=== PATIENT | female | born 1970 | race Caucasian/White ===

== ENCOUNTER → 2017-11-15 08:27 | Outpatient (CLI) | payer OTHER, SELFPAY ==
--- NOTE | 2017-11-15 08:33 | HPBI_ITS ---
MAMMOGRAPHY - BILATERAL SCREENING REASON FOR EXAM: Female, 47 years old. Routine annual screening examination. PERTINENT HISTORY: Grandmother with breast cancer. TECHNIQUE: Digital bilateral breast matthew (3D mammographic acquisition) in the CC and MLO projections. 2-D mediolateral oblique (MLO) and craniocaudad (CC) views of both breasts were obtained. CAD: Full Field Digital Mammography with Computer Added Detection was performed. COMPARISON: Comparison is made with prior study dated July 20, 2016 and September 03, 2014. FINDINGS: Breast Composition: The breasts are heterogeneously dense, which may obscure small masses. There are no dominant masses or suspicious calcifications. Stable benign-appearing bilateral axillary lymph nodes. No other significant abnormalities are identified. There has been no significant change since the prior study. HPBI/SCREENING MAMM (CAD), BILAT IMPRESSION: Stable bilateral screening mammogram. Yearly follow-up mammogram recommended. (A) ASSESSMENT CATEGORY: BIRADS Category 2: Benign. A letter regarding these results will be sent to the patient by the facility within 30 days. Approximately 10% of breast cancers are not detected by mammography. A normal mammogram should not delay biopsy of a clinically suspicious abnormality. [id number] Electronically Signed: Seth Steel MD at 10:35 EST Tel [phone], Service support ,
== END ==
PROVIDERS: Family Provider Family Medicine; PCP Family Medicine; Visit Provider Obstetrics & Gynecology
DX: Z12.31 Encounter for screening mammogram for malignant neoplasm of breast (principal); Z80.3 Family history of malignant neoplasm of breast
CPT/HCPCS: 77063; 77067

== ENCOUNTER → 2018-06-06 11:22 | Outpatient (CLI) | payer OTHER, SELFPAY ==
--- NOTE | 2018-06-06 11:31 | US_ITS ---
STUDY: ULTRASOUND OF THE FEMALE PELVIS - COMPLETE REASON FOR EXAM: Female, 47 years old. Abnormal bleeding. Prior endometrial ablation LMP: Unknown. TECHNIQUE: Transabdominal and Transvaginal TECHNICAL QUALITY: Adequate. COMPARISON: None. FINDINGS: The uterus is anteverted and is in a midline position. The uterus measures 9.3 x 4.4 x 3.9 cm. There is a Nabothian cyst of the cervix. The endometrium measures 2.6 mm in thickness, and is heterogeneous (striated). There is no demonstrated endometrial mass. There is no demonstrated myometrial mass. I.U.D. - The patient does not have an I.U.D. The right ovary is non-visualized. There is prominent cystic change in the lower uterine segment. The left ovary is visualized. The left ovary measures 2.3 x 1.7 x 1.2 cm. There is no left ovarian cyst or ovarian mass. There is no visualized left adnexal mass or complex lesion. There is normal arterial and normal venous vascularity. There is no fluid in the cul-de-sac. The pre void volume of the bladder was 410 ml. Polycystic ovary disease: No. US/Pelvic (Non ) IMPRESSION: Nonvisualized right ovary. Endometrium measuring 2.6 mm. Prominent cystic appearance of the lower uterine segment. Electronically Signed: Montrell Jang DO at 10:50 EDT Tel , Service support ,
--- NOTE | 2018-06-06 11:36 | US_ITS ---
STUDY: ULTRASOUND OF THE FEMALE PELVIS - COMPLETE REASON FOR EXAM: Female, 47 years old. Abnormal bleeding. Prior endometrial ablation LMP: Unknown. TECHNIQUE: Transabdominal and Transvaginal TECHNICAL QUALITY: Adequate. COMPARISON: None. FINDINGS: The uterus is anteverted and is in a midline position. The uterus measures 9.3 x 4.4 x 3.9 cm. There is a Nabothian cyst of the cervix. The endometrium measures 2.6 mm in thickness, and is heterogeneous (striated). There is no demonstrated endometrial mass. There is no demonstrated myometrial mass. I.U.D. - The patient does not have an I.U.D. The right ovary is non-visualized. There is prominent cystic change in the lower uterine segment. The left ovary is visualized. The left ovary measures 2.3 x 1.7 x 1.2 cm. There is no left ovarian cyst or ovarian mass. There is no visualized left adnexal mass or complex lesion. There is normal arterial and normal venous vascularity. There is no fluid in the cul-de-sac. The pre void volume of the bladder was 410 ml. Polycystic ovary disease: No. US/Transvaginal Non- IMPRESSION: Nonvisualized right ovary. Endometrium measuring 2.6 mm. Prominent cystic appearance of the lower uterine segment. Electronically Signed: Montrell Jang DO at 10:50 EDT Tel , Service support ,
== END ==
PROVIDERS: Family Provider Family Medicine; PCP Family Medicine
DX: E34.9 Endocrine disorder, unspecified (principal); E55.9 Vitamin D deficiency, unspecified; R53.83 Other fatigue; R79.9 Abnormal finding of blood chemistry, unspecified
CPT/HCPCS: 76830; 76856; 93976

== ENCOUNTER 2018-06-10 06:40 | Emergency (ER) | payer OTHER, SELFPAY ==
[2018-06-10 06:40] VITALS: BP 182/90; PULSE 83; RESP 18; TEMP 36.8; O2SAT 99; BMI 35.2
--- NOTE | 2018-06-10 06:44 | NURSING ---
NO OLD EKGS
--- NOTE | 2018-06-10 06:49 | EKG12_ITS ---
Test Reason : CHEST PAIN Blood Pressure : / mmHG Vent. Rate : 086 BPM Atrial Rate : 086 BPM P-R Int : 154 ms QRS Dur : 090 ms QT Int : 376 ms P-R-T Axes : 039 086 046 degrees QTc Int : 449 ms Normal sinus rhythm Normal ECG Confirmed by CHULA VALENTIN, RICK ([id number]), editorial director NAZARIO CANALES ([id number]) on 06/14/2018 8:48:59 AM Referred By: EMILY NIXON Confirmed By:RICK QUIROS MD
--- NOTE | 2018-06-10 06:52 | RAD_ITS ---
STUDY: X-RAY CHEST REASON FOR EXAM: Female, 47 years old. Chest pain TECHNIQUE: Single frontal view of the chest. COMPARISON: None. FINDINGS: The lungs are clear and expanded. There is no demonstrated pleural abnormality. Normal size heart. Normal mediastinum and isabella. Normal visualized pulmonary arteries. Normal visualized aortic arch and descending thoracic aorta. Normal visualized thoracic spine. Normal visualized ribs, clavicles, and shoulders. There is no demonstrated abnormality of the visualized soft tissue structures of the upper abdomen. RAD/Chest 1 View (Portable) IMPRESSION: Normal x-ray examination of the chest. Electronically Signed: Rodrick Wilson, at 7:04 EDT Tel , Service support ,
[2018-06-10 06:59] LABS: Absolute Lymphocyte Count 2.43 X10^3/ul (0.83-4.51); Basophil# 0.04 X10^3/uL; Basophil% 0.7 % (0-1); Eosinophil# 0.18 X10^3/uL; Hematocrit 42.1 % (37-47); Hemoglobin 13.5 g/dl (12.0-15.0); Lymphocyte # 2.43 X10^3/ul (4.0); Mean Corp Hgb Conc 32.1 g/gl (32-36); Mean Corpuscular Hgb 29.7 pg (27.0-32.0); Mean Corpuscular Volume 92.5 fL (81-99); Mean Platelet Vol. 10.1 fl (6.2-12.0); Monocyte# 0.38 X10^3/uL; Monocyte% 6.3 % (0-10); Neutrophil # 3.04 X10^3/uL (2.7-7.7); Neutrophil % 49.8 % (47-70); POSITIVE COUNT NO; POSITIVE DIFFERENTIAL NO; POSITIVE MORPHOLOGY NO; Platelet Count 270 K/mm3 (150-450); RBC Distribution Width CV 13.1 % (11.6-14.6); RBC Distribution Width SD 44.4 fl (35.1-43.9); Red Blood Count 4.55 M/mm3 (4.2-5.4); White Blood Count 6.1 K/mm3 (4.4-11.0)
[2018-06-10 07:14] LABS: Anion Gap 8 (5-15); BUN 16 mg/dL (7-18); BUN/Creat Ratio 22.6 RATIO (10-20); Calcium,Total 8.9 mg/dL (8.5-10.1); Chloride 105 mmol/L (98-107); Creatinine, Serum 0.71 mg/dL (0.55-1.02); EST Glomerular Filtration Rate 94 mL/min (>60); Est Glom Filt Rate - Afr Amer 114 mL/min (>60); Estimated Creatinine Clearance 89.09 ml/min; Glucose 104 mg/dL (74-106); Potassium 4.3 mmol/L (3.5-5.1); Sodium Level 138 mmol/L (136-145)
--- NOTE | 2018-06-10 07:19 | EKG12_ITS ---
Test Reason : CHEST PAIN Blood Pressure : / mmHG Vent. Rate : 075 BPM Atrial Rate : 075 BPM P-R Int : 160 ms QRS Dur : 092 ms QT Int : 388 ms P-R-T Axes : 026 085 050 degrees QTc Int : 433 ms Normal sinus rhythm Normal ECG Confirmed by CHLUA VALENTIN, RICK ([id number]), commercial production editor NAZARIO CANALES ([id number]) on 06/14/2018 8:49:18 AM Referred By: EMILY NIXON Confirmed By:RICK QUIROS MD
[2018-06-10] MEDS: Aspirin 81 MG TAB.CHEW 324 MG PO (07:21)
--- NOTE | 2018-06-10 08:36 | ED.VISSUMM ---
- ER Visit Summary Date of Service: 06/10/18 Chief Complaint: Chest pain History of Present Illness: The patient is a 47 F who presents with chest pressure. She states that yesterday afternoon or evening about 5 or 6 PM she had an episode that lasted approximately 30-45 minutes. She states that she felt flushed and had some chest pressure and palpitations. She was generally not feeling well. 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 The nurse practitioner checked her blood pressure was significantly elevated. Her symptoms then improved. He returned at about 4 AM today. She complains of mild to moderate chest pressure. She denies any shortness of breath and nausea. She states she became a little bit diaphoretic. She also notes some recent congestion but does have a history of seasonal allergies and also complain of headache. She is currently going through menopause she notes. She is treated for hypothyroidism but really has no other medical history. She denies diabetes hypertension hyperlipidemia. She is not a smoker. There is no family history of coronary artery disease at a young age. She notes that she has had prior similar intermittent episodes of the last couple of weeks. These episodes are not related to exertion. Physical Examination: Afebrile initial blood pressure 182/90 vitals otherwise normal Moist mucous membranes Heart regular rate and rhythm no murmur Lungs are clear Abdomen soft and nontender 2+ symmetric radial pulses extremities are nontender without edema Alert Test Results: EKG shows normal sinus rhythm at a rate of 86 with no acute ischemic changes. Repeat EKG remains unchanged. Chest x-ray shows no acute process. CBC BMP normal and initial troponin is negative. Repeat troponin remains negative. Emergency Department Course and Treatment: Patient was given aspirin. Workup as above is unremarkable. She has negative initial troponin and negative the hour troponin. Initial EKG and repeat EKG are normal. Patient's FROY risk score is 0. Her heart score is 3. This places her in a low risk category. I feel she is safe for outpatient follow-up. She was given clear instructions of specific signs and symptoms to monitor for and conditions which should prompt return for reevaluation here in the emergency department. Patient is agreeable to this plan. All questions answered bedside. She will follow-up as an outpatient and was discharged home. Treatment Plan: [] Disposition: Discharge Impression: Chest pain This note was generated with [employer]tain[employer] software. It may contain incorrect words, spelling, and punctuation that were not noted in review of the chart prior to signing ED Disposition - Plan for ED Patient: Chief Complaint: Chest Pain Referrals: Pratima Palacios MD [Primary Care Provider] -
[2018-06-10 09:35] VITALS: BP 136/91; PULSE 77; RESP 18; O2SAT 98
--- NOTE | 2018-06-10 10:54 | ED.DEP ---
ED Disposition - Plan for ED Patient: Chief Complaint: Chest Pain Instructions: ED Chest Pain NonCardiac Referrals: Pratima Palacios MD [Primary Care Provider] -
[2018-06-10 11:24] VITALS: BP 132/79; PULSE 76; RESP 16; O2SAT 99
== END 2018-06-10 11:25 | disposition home or self-care (01) ==
PROVIDERS: Emergency Provider Emergency Medicine; Family Provider Family Medicine; PCP Family Medicine
DX: R07.9 Chest pain, unspecified (principal); R00.2 Palpitations; R51 Headache; E03.9 Hypothyroidism, unspecified; Z78.0 Asymptomatic menopausal state; Z79.899 Other long term (current) drug therapy
CPT/HCPCS: 71045; 80048; 84484; 85025; 93005; 99285; A4216

== ENCOUNTER → 2018-07-07 13:10 | Outpatient (CLI) | payer OTHER, SELFPAY ==
--- NOTE | 2018-07-07 12:00 | EMB_PTH ---
PATIENT: SHAYNE RODRIGUEZ LOC: [facility] U#:[id number] AGE/SX: 54/F ROOM: RE07/07/[address]: Dr. Yash Dyer MD : 1970 BED: DIS: SPEC #: [id number] RECD: 07/07/18 14:14 STATUS: ELENO HERNANDEZFilomena #: [id number] ISSA: 07/07/18 12:[address]: Yash Dyer DEPT: SURGICAL PATHOLOGY RECD BY: Isabelle Desai ENTERED: 07/10/18 09:43 SP TYPE: ENDOM BX/C HAM DR: Dr. Pratima Palacios MD Tissues: Endometrium, NOS Procedures: Surgery Specimen Level IV HEADER OPERATION: Endometrial biopsy PRE-OP DIAGNOSIS: N93.9 TISSUE SUBMITTED: Endometrial biopsy MICROSCOPIC DIAGNOSIS Endometrial biopsy: Scant fragments of superficial benign endometrial tissue, blood and mucous. See comment. JAKE:connie 07/10/18 COMMENT The specimen predominantly consists of mucoid tissue. Clinical correlation and appropriate follow up are necessary. MICROSCOPIC DESCRIPTION Slides are reviewed. GROSS DESCRIPTION Received in fixative is one container labeled with the patient's name and designated EM biopsy. The specimen consists of multiple fragments of hemorrhagic, bhakta mucoid tissue measuring in aggregate 3 x 2.5 x 0.2 cm. The specimen is totally submitted in one cassette. / SJ:connie 07/07/18 TC:5 CPT: 77746
[2018-07-11 10:55] LABS: HPV APTIMA, High Risk Negative (Negative)
== END ==
PROVIDERS: PCP Family Medicine; Visit Provider Obstetrics & Gynecology
DX: Z12.4 Encounter for screening for malignant neoplasm of cervix (principal); N93.9 Abnormal uterine and vaginal bleeding, unspecified
CPT/HCPCS: 88175; 88305; G0145

== ENCOUNTER → 2019-02-28 16:55 | Outpatient (CLI) | payer OTHER, SELFPAY ==
[2019-02-28 18:20] LABS: Absolute Lymphocyte Count 2.96 X10^3/ul (0.83-4.51); Absolute Neutrophil Count 4.5 X10^3/uL (2.0-7.7); Basophil# 0.03 X10^3/uL; Basophil% 0.4 % (0-1); Eosinophil# 0.14 X10^3/uL; Eosinophils% 1.7 % (0-5); Hematocrit 39.3 % (37-47); Hemoglobin 12.6 g/dl (12.0-15.0); Lymphocyte # 2.96 X10^3/ul (4.0); Lymphocyte % 35.8 % (19-41); Mean Corp Hgb Conc 32.1 g/gl (32-36); Mean Corpuscular Hgb 29.4 pg (27.0-32.0); Mean Corpuscular Volume 91.6 fL (81-99); Mean Platelet Vol. 10.3 fl (6.2-12.0); Monocyte# 0.65 X10^3/uL; Monocyte% 7.9 % (0-10); Neutrophil # 4.47 X10^3/uL (2.7-7.7); Neutrophil % 54.1 % (47-70); POSITIVE COUNT NO; POSITIVE DIFFERENTIAL NO; POSITIVE MORPHOLOGY NO; Platelet Count 306 K/mm3 (150-450); RBC Distribution Width CV 13.4 % (11.6-14.6); RBC Distribution Width SD 44.5 fl (35.1-43.9); Red Blood Count 4.29 M/mm3 (4.2-5.4); White Blood Count 8.3 K/mm3 (4.4-11.0)
[2019-02-28 18:57] LABS: ALB/GLOB Ratio 0.8 RATIO (0.9-2.4); AST(SGOT) 29 U/L (15-37); Alanine Aminotransfer ALT/SGPT 20 U/L (13-56); Albumin, Serum 3.4 g/dL (3.2-5.0); Alkaline Phosphatase 80 U/L (45-117); Anion Gap 4 (5-15); BUN 16 mg/dL (7-18); BUN/Creat Ratio 22.7 RATIO (10-20); Calcium,Total 9.1 mg/dL (8.5-10.1); Chloride 104 mmol/L (98-107); Cholesterol 244 mg/dL (200); Creatinine, Serum 0.71 mg/dL (0.55-1.02); EST Glomerular Filtration Rate 94 mL/min (>60); Est Glom Filt Rate - Afr Amer 114 mL/min (>60); Globulin 4.1 g/dL (2.2-4.2); Glucose 92 mg/dL (74-106); High Density Lipoprotein 46 mg/dL; Potassium 4.3 mmol/L (3.5-5.1); Protein, Total 7.5 g/dL (6.4-8.2); Sodium Level 135 mmol/L (136-145); Thyroid Stim Hormone (TSH) 3.31 uIU/mL (0.358-3.74); Triglycerides 421 mg/dL
== END ==
LOC: MFPLAB 16:58
PROVIDERS: Family Provider Family Medicine; PCP Family Medicine; Referring Provider Family Medicine; Visit Provider Family Medicine
DX: R03.0 Elevated blood-pressure reading, without diagnosis of hypertension (principal); E66.9 Obesity, unspecified
CPT/HCPCS: 36415; 80053; 80061; 84443; 85025

== ENCOUNTER → 2019-04-03 08:15 | Outpatient (CLI) | payer OTHER, SELFPAY ==
--- NOTE | 2019-04-03 08:18 | BI_ITS ---
MAMMOGRAPHY - BILATERAL SCREENING REASON FOR EXAM: Female, 48 years old. Routine annual screening examination. PERTINENT HISTORY: Grandmother with breast cancer. TECHNIQUE: Digital bilateral breast eugenio (3D mammographic acquisition) in the CC and MLO projections. 2-D mediolateral oblique (MLO) and craniocaudad (CC) views of both breasts were obtained. CAD: Full Field Digital Mammography with Computer Added Detection was performed. COMPARISON: Comparison is made with prior study dated November 15, 2017 and July 20, 2016. FINDINGS: Breast Composition: The breasts are heterogeneously dense, which may obscure small masses. There are no dominant masses or suspicious calcifications. Stable small bilateral axillary lymph nodes. No other significant abnormalities are identified. There has been no significant change since the prior study. BI/SCREEN MAMM (CAD) W/EUGENIO BILAT IMPRESSION: Stable bilateral screening mammogram. Yearly follow-up mammogram recommended. (A) ASSESSMENT CATEGORY: BIRADS Category 1: Negative. A letter regarding these results will be sent to the patient by the facility within 30 days. Approximately 10% of breast cancers are not detected by mammography. A normal mammogram should not delay biopsy of a clinically suspicious abnormality. [id number] Electronically Signed: Seth Steel, at 9:35 EDT , Service support ,
== END ==
PROVIDERS: Family Provider Family Medicine; PCP Family Medicine; Referring Provider Obstetrics & Gynecology; Visit Provider Obstetrics & Gynecology
DX: Z12.31 Encounter for screening mammogram for malignant neoplasm of breast (principal)
CPT/HCPCS: 77063; 77067

== ENCOUNTER → 2019-06-22 07:09 | Outpatient (CLI) | payer OTHER, SELFPAY ==
[2019-06-22 10:46] LABS: Hematocrit 42.6 % (37-47); Hemoglobin 13.7 g/dL (12.0-15.0); Mean Corp Hgb Conc 32.2 g/dL (32-36); Mean Corpuscular Hgb 29.5 pg (27.0-32.0); Mean Corpuscular Volume 91.8 fL (81-99); Mean Platelet Vol. 10.9 fl (6.2-12.0); Platelet Count 261 K/mm3 (150-450); RBC Distribution Width SD 43.7 fl (35.1-43.9); Red Blood Count 4.64 M/mm3 (4.2-5.4)
[2019-06-22 11:07] LABS: Vitamin B12 752 pg/mL (211-911); Vitamin D,25 Hydroxy 27.2 ng/mL (29.95-100.01)
[2019-06-22 11:35] LABS: ALB/GLOB Ratio 0.8 RATIO (0.9-2.4); AST(SGOT) 27 U/L (15-37); Alanine Aminotransfer ALT/SGPT 20 U/L (13-56); Albumin, Serum 3.4 g/dL (3.2-5.0); Alkaline Phosphatase 68 U/L (45-117); Anion Gap 5 (5-15); BUN 12 mg/dL (7-18); BUN/Creat Ratio 16.1 RATIO (10-20); Calcium,Total 8.8 mg/dL (8.5-10.1); Chloride 105 mmol/L (98-107); Cholesterol 180 mg/dL (200); Creatinine, Serum 0.75 mg/dL (0.55-1.02); EST Glomerular Filtration Rate 88 mL/min (>60); Est Glom Filt Rate - Afr Amer 107 mL/min (>60); Ferritin 104 ng/mL (8-252); Globulin 4.2 g/dL (2.2-4.2); Glucose 98 mg/dL (74-106); High Density Lipoprotein 51 mg/dL; Iron 88 ug/dL (50-170); Magnesium 1.9 mg/dL (1.6-2.6); Potassium 4.5 mmol/L (3.5-5.1); Protein, Total 7.6 g/dL (6.4-8.2); Sodium Level 138 mmol/L (136-145); Thyroid Stim Hormone (TSH) 3.61 uIU/mL (0.358-3.74); Triglycerides 260 mg/dL; Very Low Density Lipoprotein 52 mg/dL (5-40)
[2019-06-26 19:13] LABS: Vitamin B1, Thiamine 142.8 nmol/L (66.5-200.0)
[2019-06-27 13:18] LABS: Zinc, Plasma or Serum 69 ug/dL (56-134)
== END ==
LOC: MTLAB 07:09
PROVIDERS: Family Provider Family Medicine; PCP Family Medicine; Referring Provider Registered Nurse Nephrology; Visit Provider Registered Nurse Nephrology
DX: E78.5 Hyperlipidemia, unspecified (principal); I10 Essential (primary) hypertension; K21.9 Gastro-esophageal reflux disease without esophagitis; E66.01 Morbid (severe) obesity due to excess calories; Z68.37 Body mass index [BMI] 37.0-37.9, adult; R40.0 Somnolence
CPT/HCPCS: 36415; 80053; 80061; 82306; 82607; 82728; 82746; 83540; 83735; 84425; 84443; 84630; 85027

== ENCOUNTER → 2020-06-09 11:38 | Outpatient (CLI) | payer OTHER, SELFPAY ==
[2020-06-09 16:56] LABS: AST(SGOT) 21 U/L (15-37); Alanine Aminotransfer ALT/SGPT 13 U/L (13-56); Cholesterol 207 mg/dL (200); High Density Lipoprotein 40 mg/dL; T4 Total, Thyroxin 11.8 ug/dL (4.8-13.9); Triglycerides 265 mg/dL; Very Low Density Lipoprotein 53 mg/dL (5-40)
== END ==
PROVIDERS: PCP Family Medicine; Referring Provider Family Medicine; Visit Provider Family Medicine
DX: E78.5 Hyperlipidemia, unspecified (principal); E03.9 Hypothyroidism, unspecified
CPT/HCPCS: 36415; 80061; 84436; 84443; 84450; 84460

== ENCOUNTER → 2020-08-26 15:08 | Outpatient (CLI) | payer OTHER, SELFPAY ==
[2020-08-21 14:13] VITALS: BMI 36.1
== END ==
PROVIDERS: PCP Family Medicine; Visit Provider Nurse Practitioner Family
DX: R05 Cough (principal)
CPT/HCPCS: 87633; 87635; U0003

== ENCOUNTER 2020-09-05 09:38 | Day surgery (SDC) | payer OTHER, SELFPAY ==
[2020-08-21 14:13] VITALS: BMI 36.1
[2020-09-05 10:00] VITALS: BP 140/91; PULSE 82; RESP 16; TEMP 36.6; O2SAT 98; BMI 35.5
--- NOTE | 2020-09-05 10:00 | HP_ITS ---
Intake Vital Signs 08/21/20 Height 5 ft 5 in 08/21/20 Weight: 217 lb 08/21/20 BMI 36.1 08/21/20 BP 155/100 H 08/21/20 Blood Pressure Location Rt brachial 08/21/20 Position Sitting 08/21/20 Respiration 18 Intake Visit Reasons: C-Scope Consult Diarrhea & Family HX Chief Complaint: diarrhea and family history of colon ca Lab Pack Chemist Required: No Is patient in pain?: No Allergies No Known Allergies Allergy (Verified 07/13/18 11:07) environmental Allergy (Mild, Uncoded 08/21/20 14:14) PT UNSURE OF REACTION Medications traZODone [Desyrel] 50 mg PO QHS 03/20/14 [History Confirmed 07/13/18] PFSH Medical History Anxiety (Chronic) 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 Delfin Timmons MD) Smoking Status: Never smoker alcohol intake: current Alcohol type: wine what type of physical activity do you participate in: running, weight training frequency: 3-4 times per week HPI HPI HPI: SHAYNE RODRIGUEZ, is a 49 F who presents to the office today for HPI HPI Surgical H&P: Yes HPI: SHAYNE RODRIGUEZ, is a 49 F who presents to the office today for colonoscopy. The patient reports she has been having diarrhea for the past 6 months. She has had colitis in the past but does not remember what type of colitis. The patient reports her last colonoscopy was over 10 years ago and was normal. Patient does not have any blood in her stool. The patient does report that her father had colon cancer in his 50s. ROS General General: No weight change or fatigue Cardio Cardiovascular: No murmur, pacemaker, heart disease, atrial fibrillation, high blood pressure, heart attack, heart stent, palpitations, shortness of breat with exertion or chest pain Psych Psychiatric: Yes anxiety; no depression Resp Respiratory: No shortness of breath, No sleep apnea, No cough, No COPD, No asthma, No emphysema, No wheezing Gastro Gastrointestinal: No abdominal pain, No nausea or vomiting, Yes diarrhea, No constipation, No blood in stool, No acid reflux, Yes hemorrhoids, No ulcers, No gallbladder problem, No black,tarry stools Theo Hematologic: No blood thinners Exam Const General: cooperative Orientation: alert, oriented x3 Resp Effort & Inspection: normal respiratory effort Auscultation: clear to auscultation bilaterally Cardio Rate: regular rate Rhythm: regular rhythm Heart Sounds: no murmurs GI Inspection: non-distended Palpation: soft, nontender Assessment & Plan Problems 1. Diarrhea, unspecified type R19.7 2. Family history of malignant neoplasm of colon in first degree relative diagnosed when younger than 60 years of age Z80.0 Plan Patient has chronic diarrhea and she also has a family history of colon cancer in her father in his 50s. Patient reports that her diarrhea is been going on for last 6 months and she does not know the cause. She does not have any blood or abdominal pain. She has had colitis in the past. I recommend colonoscopy with random biopsies. I explained endoscopy in detail to the patient. I explained the risks including but not limited to stroke or heart attack with anesthesia, perforation of the GI tract, bleeding, infection. I explained that any of these could necessitate further emergency surgery. The patient understands and all questions were answered sufficiently. The patient wishes to proceed with procedure. We discussed the current risks associated with COVID-19. While it is understood that there is a community spread of COVID-19, the risk of octaviano COVID-19 while at [facility] ([facility]) is very low; however, the risk cannot be completely mitigated because of the community spread of the disease. We discussed in detail the risk of exposure to and/or potential harm posed by the COVID-19 virus with having a surgery/procedure at this time versus the risk of delaying the surgery/procedure. It is not possible to know either the risk of delaying the surgery or procedure or chance of getting an infection with perfect accuracy, but a joint decision was made to proceed at this time with the scheduled surgery/procedure as indicated on the consent form. Patient was notified that we will need to comply with any screening or testing [facility] wishes to perform or that surgery may be delayed for any positive results. Delfin Timmons MD Pager: [facility] [address] [place] [address], [address] [place] [address] Office: Orders Orders: Colonoscopy Today R19.7, Z80.0 Plan Detail Goals Decrease pain and inflammation Increase ROM Barriers Reverse of cervical curve Coding Level of Care Code Off vis,new,level 3 Diagnoses Diarrhea, unspecified type R19.7 ??Diarrhea type: unspecified type Family history of malignant neoplasm of colon in first degree relative diagnosed when younger than 60 years of age Z80.0 I have re-examined the patient. There are no clinical changes since date of exam.
[2020-09-05 10:04] LABS: Internal QC Validated? YES +Cl - CLEAR BKGD; Pregnancy, Urine Negative Negative
[2020-09-05] MEDS: Lactated Ringers 1,000 ML 100 ML IV (10:09)
--- NOTE | 2020-09-05 10:15 | COLBX_PTH ---
PATIENT: SHAYNE RODRIGUEZ LOC: EN U#:[id number] AGE/SX: 49/F ROOM: RE09/05/[address]: Dr. Delfin Timmons MD : 1970 BED: DIS: 09/05/2020 SPEC #: [id number] RECD: 09/05/20 12:07 STATUS: ELENO IVAN #: [id number] ISSA: 09/05/20 10:[address]: Delfin Timmons DEPT: SURGICAL PATHOLOGY RECD BY: Isabelle Desai ENTERED: 09/05/20 14:15 SP TYPE: COLON BX OTHR DR: Dr. Pratima Palacios MD Tissues: COLON BIOPSY Procedures: Surgery Specimen Level IV HEADER OPERATION: Colonoscopy (MAC) PRE-OP DIAGNOSIS: Diarrhea, family history malignant colon neoplasm TISSUE SUBMITTED: Random colonic biopsy MICROSCOPIC DIAGNOSIS Colon, random biopsy: Fragments of colonic mucosa, no pathologic diagnosis. SJ:connie 12/21/20 MICROSCOPIC DESCRIPTION Slides are reviewed. GROSS DESCRIPTION Received in fixative is one container labeled with the patient's name and designated random colon biopsy. The specimen consists of multiple irregular fragments of light bhakta soft tissue that in aggregate measure 1.5 x 0.7 x 0.1 cm. The specimen is totally submitted in one cassette. / SJ:rg 09/05/20 TC:4 CPT: 82294
--- NOTE | 2020-09-05 10:42 | OP.COLON_ITS ---
Patient Name: Ambreen Mancuso Procedure Date: 09/05/2020 9:54 AM Date of : 1970 Age: 49 Procedure: Colonoscopy Indications: Chronic diarrhea Providers: Delfin Timmons MD Referring MD: Delfin Timmons MD Medicines: Monitored Anesthesia Care Patient Profile: This is a 49 year old female. Refer to note in patient chart for documentation of history and physical. Last Colonoscopy: none. The patient's first colonoscopy is today. Complications: No immediate complications. Estimated blood loss: Minimal. Procedure: Pre-Anesthesia Assessment: - Prior to the procedure, a History and Physical was performed, and patient medications and allergies were reviewed. The patient's tolerance of previous anesthesia was also reviewed. The risks and benefits of the procedure and the sedation options and risks were discussed with the patient. All questions were answered, and informed consent was obtained. Prior Anticoagulants: The patient has taken no previous anticoagulant or antiplatelet agents. After reviewing the risks and benefits, the patient was deemed in satisfactory condition to undergo the procedure. After I obtained informed consent, the scope was passed under direct vision. Throughout the procedure, the patient's blood pressure, pulse, and oxygen saturations were monitored continuously. The Colonoscope was introduced through the anus and advanced to the cecum, identified by appendiceal orifice and ileocecal valve. The colonoscopy was performed without difficulty. The patient tolerated the procedure well. The quality of the bowel preparation was good. Scope In: 10:26:49 AM Scope Withdrawal Time 0 hours 6 minutes 9 seconds Scope Out: 10:38:19 AM Total Procedure Duration Time 0 hours 11 minutes 30 seconds Findings: The entire examined colon appeared normal on direct and retroflexion views. Biopsies for histology were taken with a cold forceps from the entire colon for evaluation of microscopic colitis. Impression: - The entire examined colon is normal on direct and retroflexion views. - Biopsies were taken with a cold forceps from the entire colon for evaluation of microscopic colitis. Recommendation: - Discharge patient to home. - Resume previous diet. - Continue present medications. - Await pathology results. - Repeat colonoscopy in 5 years for surveillance. Procedure Code(s): --- Professional --- 71384, Colonoscopy, flexible; with biopsy, single or multiple Diagnosis Code(s): --- Professional --- K52.9, Noninfective gastroenteritis and colitis, unspecified CPT copyright 2017 [employer]. All rights reserved. The codes documented in this report are preliminary and upon b2b sales consultant review may be revised to meet current compliance requirements. Delfin Timmons MD 09/05/2020 10:42:13 AM This report has been signed electronically. Number of Addenda: 0 Note Initiated On: 09/05/2020 9:54 AM
[2020-09-05 10:43] VITALS: BP 120/68; BP 140/91; PULSE 80; RESP 16; TEMP 36.3; O2SAT 99
--- NOTE | 2020-09-05 10:43 | OP.CCLET_ITS ---
09/05/2020 Pratima Palacios [address] [place] [address] Re : Colonoscopy procedure for Ambreen Mancuso Dear Dr. Palacios This procedure was performed on Saturday, September 05, 2020. My impressions and recommendations are as follows: Impressions : - The entire examined colon is normal on direct and retroflexion views. - Biopsies were taken with a cold forceps from the entire colon for evaluation of microscopic colitis. Recommendations : - Discharge patient to home. - Resume previous diet. - Continue present medications. - Await pathology results. - Repeat colonoscopy in 5 years for surveillance. My findings are described in the full procedure note, which is enclosed. If I can be of further assistance, please feel free to contact me at Doctor phone number(s): , Work: . Sincerely, Delfin Timmons MD 09/05/2020 10:42:13 AM This report has been signed electronically.
[2020-09-05 10:51] VITALS: BP 119/78; BP 140/91; PULSE 71; RESP 16; O2SAT 100
[2020-09-05 10:55] VITALS: BP 134/77; BP 140/91; PULSE 70; RESP 16; O2SAT 100
[2020-09-05 10:59] VITALS: BP 136/89; BP 140/91; PULSE 71; RESP 16; TEMP 36.3; O2SAT 97
[2020-09-05 11:16] VITALS: BP 140/91
== END 2020-09-05 11:17 | disposition home or self-care (01) ==
LOC: EN 09:42 → AC 09:43
PROVIDERS: Anesthesiology; PCP Family Medicine; Referring Provider Surgery; Visit Provider Surgery
PROC: 0DJD8ZZ Inspection of Lower Intestinal Tract, Via Natural or Artificial Opening Endoscopic (ICD-10-PCS; CPT 45378; principal; 2020-09-05 10:10)
DX: K52.9 Noninfective gastroenteritis and colitis, unspecified (principal); F41.9 Anxiety disorder, unspecified; Z79.899 Other long term (current) drug therapy; Z87.891 Personal history of nicotine dependence; Z80.0 Family history of malignant neoplasm of digestive organs
CPT/HCPCS: 45380; 81025; 88305; J7120; J2405

== ENCOUNTER → 2020-12-11 17:00 | Outpatient (CLI) | payer OTHER, SELFPAY ==
--- NOTE | 2020-12-11 16:32 | BI_ITS ---
MAMMOGRAPHY - BILATERAL SCREENING REASON FOR EXAM: Female, 50 years old. Routine annual screening examination. PERTINENT HISTORY: Grandmother with breast cancer. Occasional bilateral breast tenderness. TECHNIQUE: Digital bilateral breast eugenio (3D mammographic acquisition) in the CC and MLO projections. 2-D mediolateral oblique (MLO) and craniocaudad (CC) views of both breasts were obtained. CAD: Full Field Digital Mammography with Computer Added Detection was performed. COMPARISON: Comparison is made with prior study dated 04/03/2019 and 11/15/2017. FINDINGS: Breast Composition: The breasts are heterogeneously dense, which may obscure small masses. There are no dominant masses or suspicious calcifications. Stable benign-appearing bilateral axillary lymph nodes. No other significant abnormalities are identified. There has been no significant change since the prior study. BI/SCRN MAMM (CAD)W/EUGENIO BILAT IMPRESSION: Stable bilateral screening mammogram. Yearly follow-up mammogram recommended. (A) ASSESSMENT CATEGORY: BIRADS Category 2: Benign. A letter regarding these results will be sent to the patient by the facility within 30 days. Approximately 10% of breast cancers are not detected by mammography. A normal mammogram should not delay biopsy of a clinically suspicious abnormality. [id number] Electronically Signed: Seth Steel MD at 8:55 EDT , Service support ,
== END ==
PROVIDERS: PCP Family Medicine; Referring Provider Obstetrics & Gynecology; Visit Provider Obstetrics & Gynecology
DX: Z12.31 Encounter for screening mammogram for malignant neoplasm of breast (principal)
CPT/HCPCS: 77063; 77067

== ENCOUNTER → 2021-01-01 16:37 | Outpatient (CLI) | payer OTHER, SELFPAY ==
[2021-01-01 17:51] LABS: Absolute Lymphocyte Count 2.88 X10^3/uL (0.83-4.51); Absolute Neutrophil Count 4.9 X10^3/uL (2.0-7.7); Basophil# 0.06 X10^3/uL; Basophil% 0.7 % (0-1); Eosinophil# 0.09 X10^3/uL; Eosinophils% 1.1 % (0-5); Lymphocyte # 2.88 X10^3/ul (0.83-4.51); Lymphocyte % 33.7 % (19-41); Mean Corp Hgb Conc 31.8 g/dL (32-36); Mean Corpuscular Hgb 29.9 pg (27.0-32.0); Mean Platelet Vol. 10.8 fl (6.2-12.0); Monocyte# 0.58 X10^3/uL; Monocyte% 6.8 % (0-10); NRBC Flagged by Analyzer 0 % (0-5); Neutrophil % 57.2 % (47-70); Platelet Count 386 K/mm3 (150-450); RBC Distribution Width CV 13.4 % (11.6-14.6); RBC Distribution Width SD 46.2 fl (35.1-43.9); Red Blood Count 4.68 M/mm3 (4.2-5.4); White Blood Count 8.6 K/mm3 (4.4-11.0)
[2021-01-01 19:22] LABS: Ferritin 104 ng/mL (8-252); Free T3 2.2 pg/mL (2.18-3.98); T4 Free Direct 1.02 ng/dL (0.76-1.46); Thyroid Stim Hormone (TSH) 2.57 uIU/mL (0.358-3.74)
[2021-01-03 19:57] LABS: Thyroid Peroxidase AB < 9 IU/mL (0-34)
== END ==
PROVIDERS: PCP Family Medicine; Referring Provider Family Medicine; Visit Provider Family Medicine
DX: U07.1 COVID-19 (principal); E03.9 Hypothyroidism, unspecified; R53.83 Other fatigue; L65.9 Nonscarring hair loss, unspecified
CPT/HCPCS: 82728; 84439; 84443; 84481; 85025; 86376; 86769

== ENCOUNTER → 2021-02-24 07:12 | Outpatient (CLI) | payer OTHER, SELFPAY ==
[2021-02-24 10:17] LABS: Insulin 18.6 mU/L (2.6-37.6); Progesterone Level 0.24 ng/mL (See Comment); Vitamin D,25 Hydroxy 29.3 ng/mL
[2021-02-24 10:19] LABS: Estradiol 19.7 pg/mL; Follicle Stimulating Hormone 32.1 mIU/mL; Glucose 103 mg/dL (74-106)
[2021-02-24 18:17] LABS: CRP, High Sensitivity Cardiac 6.15 mg/L
[2021-02-27 17:30] LABS: Sex Hormone-binding Globulin 23.1 nmol/L (24.6-122.0); T3 Reverse 14.6 ng/dL (9.2-24.1)
== END ==
PROVIDERS: PCP Family Medicine; Referring Provider Obstetrics & Gynecology; Visit Provider Obstetrics & Gynecology
DX: E03.9 Hypothyroidism, unspecified (principal); N92.6 Irregular menstruation, unspecified; N95.1 Menopausal and female climacteric states
CPT/HCPCS: 36415; 82306; 82533; 82627; 82670; 82947; 83001; 83525; 84144; 84270; 84403; 84482; 86141; 82626

== ENCOUNTER → 2021-09-09 20:00 | Outpatient (CLI) | payer OTHER, SELFPAY | PROVIDERS: PCP Family Medicine; Visit Provider Family Medicine | DX: G47.10 Hypersomnia, unspecified (principal); I10 Essential (primary) hypertension; R40.0 Somnolence | CPT/HCPCS: 95811 ==

== ENCOUNTER 2021-10-16 06:44 | Outpatient (CLI) | payer OTHER, SELFPAY ==
[2021-10-16 07:11] LABS: Hematocrit 40.4 % (37-47); Hemoglobin 13.4 g/dL (12.0-15.0); Mean Corp Hgb Conc 33.2 g/dL (32-36); Mean Corpuscular Hgb 30.2 pg (27.0-32.0); Mean Corpuscular Volume 91.2 fL (81-99); Mean Platelet Vol. 10.1 fl (6.2-12.0); Platelet Count 305 K/mm3 (150-450); RBC Distribution Width CV 13.2 % (11.6-14.6); RBC Distribution Width SD 44.1 fl (35.1-43.9); Red Blood Count 4.43 M/mm3 (4.2-5.4); White Blood Count 6.9 K/mm3 (4.4-11.0)
[2021-10-16 07:57] LABS: ALB/GLOB Ratio 0.8 RATIO (0.9-2.4); AST(SGOT) 35 U/L (15-37); Alanine Aminotransfer ALT/SGPT 37 U/L (13-56); Albumin, Serum 3.3 g/dL (3.2-5.0); Alkaline Phosphatase 68 U/L (45-117); Anion Gap 6 (5-15); BUN 12 mg/dL (7-18); BUN/Creat Ratio 15.9 RATIO (10-20); Calcium,Total 8.9 mg/dL (8.5-10.1); Chloride 103 mmol/L (98-107); Cholesterol 191 mg/dL (200); Creatinine, Serum 0.76 mg/dL (0.55-1.02); EST Glomerular Filtration Rate 86 mL/min (>60); Est Glom Filt Rate - Afr Amer 104 mL/min (>60); Ferritin 144 ng/mL (8-252); Glucose 116 mg/dL (74-106); High Density Lipoprotein 38 mg/dL; Iron 72 ug/dL (50-170); Potassium 3.8 mmol/L (3.5-5.1); Protein, Total 7.3 g/dL (6.4-8.2); Sodium Level 139 mmol/L (136-145); Thyroid Stim Hormone (TSH) 3.56 uIU/mL (0.358-3.74); Triglycerides 207 mg/dL; Very Low Density Lipoprotein 41 mg/dL (5-40)
[2021-10-16 08:05] LABS: Vitamin B12 413 pg/mL (211-911); Vitamin D,25 Hydroxy 34.1 ng/mL
[2021-10-30 22:06] LABS: Vitamin B1, Thiamine 155.7 nmol/L (66.5-200.0)
[2021-10-30 22:44] LABS: Cotinine Screen Blood <1.0 ng/mL (.); Nicotine Blood <1.0 ng/mL (.); Zinc, Plasma or Serum 81 ug/dL (44-115)
== END 2021-10-16 23:59 | disposition short-term general hospital (02) ==
PROVIDERS: PCP Family Medicine; Referring Provider Registered Nurse Nephrology; Visit Provider Registered Nurse Nephrology
DX: E78.5 Hyperlipidemia, unspecified (principal); E66.01 Morbid (severe) obesity due to excess calories; Z68.41 Body mass index [BMI] 40.0-44.9, adult; I10 Essential (primary) hypertension; M25.559 Pain in unspecified hip; M25.569 Pain in unspecified knee; R06.02 Shortness of breath; G47.10 Hypersomnia, unspecified
CPT/HCPCS: 36415; 80053; 80061; 80323; 82306; 82607; 82728; 82746; 83540; 83735; 84425; 84443; 84630; 85027

== ENCOUNTER 2022-01-13 16:30 | Outpatient (RCR) | payer OTHER, SELFPAY ==
--- NOTE | 2021-11-10 17:54 | HP.PTEVAL_ITS ---
Patient's Visit Information SHAYNE RODRIGUEZ is a 51 year old F referred to Physical Therapy by Dr. Cat Vargas MD with a diagnosis of Neck pain, ESPINOZA. Date of Evaluation: 11/10/21 Physical Therapist: Lane Chance, DPT, OCS, CSCS - Visit Plan Frequency: 3x /Week Duration: 2-4 Weeks Plan: 3x/week for 2-4 weeks for... 1. STM to posterior and lateral neck, PROM neck ext and rotation, manual traction and joint mobs ext. 2. stretch neck UT and lev scap and scalenes. 3. strengthen neck and postural muscles. 4 MH as needed., postural work and ergonomics. - Subjective Has been having a lot of neck pain. Danced and neck hurt since for last couple months. Was walking a few weeks ago and heard pop in L knee. Neck pain is B lateral necks and spasms on the side, it is daily and intermittent and worse in evening and late afternoon. Feels tight opposite side of neck with stretching. No numbness or tingling. ESPINOZA are mild and once per week and she relates them to the neck, none prior. L knee felt pop behind knee and it gave out a few weeks ago and has happened a few times since. No falls. Pain is posterior and to 4- 5/10 if it hurts and walking on TM agitates it. Sleep is not interrupted as she takes sleep meds. 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 Basic ADLs are getting done but painful. - Pain Neck pain Pain Intensity (Out of 10): 1 Pain Intensity Range: 0, 3 - Objective cervical AROM L rot 45 adn R rot 55 and ext 28 degrees. posture is FW head and protracted scap. Full AROM UE but slow on L side. reflexes 2/3 biceps and triceps. Sensation WNL to gross light touch. Strength in UE is 3+ B but painful on L. knee AROM 0-101 L and 0-112 R, painful posterior. + c/s compression. Repeated cervical baselin2/10 neck. protraction. W and 3/10 L side. retraction repeated Produces neck pain and W 6/10 neck. flexion with OP, produces strain neck and NE. c/s extension x10 P pain, muscle aches 6/10, increases ROM to 50 extension. much tension and tightness L>R neck and hesitant to move. - Balance/Special Test Scores Oswestry Neck Score: 12 - Goals Goal 1:: Full aROM cervical spine without pain or hesitation Goal Time Frame: 2-4 Weeks Goal 2:: Patient feel neck pain and ESPINOZA 80% improved to 1/10 at worst and intermittent. Goal Time Frame: 2-4 Weeks Goal 3:: I approp HEOP to limit future problems Goal Time Frame: 2-4 Weeks Goal 4:: Neck oswestry score 5 or less. Goal Time Frame: 2-4 Weeks - Rehabilitation Potential Physical Therapy Diagnosis: Neck pain and ESPINOZA making function painful. Rehabilitation Potential: Fair - Anticipated Interventions Patient/Client Instruction: Educate patient on: Condition, Plan of Care For the Purpose of:: To decrease pain, To increase ROM, To improve muscle performance and motor function, To improve ability of physical actions for home/community/work/leisure Therapeutic Exercise to Include: Strength training, Postural training, Flexibilty training, Passive ROM, Active ROM, Scapular Strength/Stabilization For the Purpose of:: To decrease pain, To increase ROM, To increase oxygenation perfusion, To improve muscle performance and motor function, To improve ability of physical actions for home/community/work/leisure Manual Therapy Techniques to Include: Mobilization, Passive ROM, Soft tissue mobilization For the Purpose of:: To decrease pain, To increase ROM Thermo therapy (hot pack): Yes For the Purpose of:: To decrease pain Thank you for the opportunity to evaluate your patient. For Medicare and Medicare HMO plans, please review the plan of care and approve it. It will need to be FAXED BACK to us at [phone] for Medicare purposes. For Medicare only, by signing this I certify the plan of care. Please let me know if there are questions or concerns regarding this plan of care. Physician Signature: Date:
--- NOTE | 2021-12-01 16:59 | HP.PTREVAL ---
Dr. Cat Vargas MD, It has been my pleasure to treat SHAYNE RODRIGUEZ over the last 6 visits for Neck pain, ESPINOZA. Please see the progress note below for an update on the physical therapy plan of care! Subjective: No more ESPINOZA. Still gets L head rotated sharp pain at times but loosens up quickly. Both shoulders feel tight and tense most of time but not painful. Got a percussion massager which she uses nightly and feels better afterwards. 2x/day HEP OK 2x/day GTB exercises 3x/week 3x10. No f/u with doctor scheduled. Objective/Function: 65 L rotation with pain, 75 R rotation and 75 ext, still deviate slightly R. These are better by 10 degrees and more symmetrical after towel SNAGs L rot and c/s ext. pt doing well but still with signs of derangement and improvements to be made. :Prognosis is fair and goals extended two more weeks. Plan Plan: 2x/week for 3 weeks for. 1. c/s ext mobs and L rotation mobs and PROM with traction and L rotation and supine ret ext . THIS should be the emphasis.. 2. STM B UT and scap muscles. 3 Pt to strengthen at home with band. Balance/Gait/Functional tests - Balance/Special Test Scores Oswestry Neck Score: 11 Goals Goal 1:: Full aROM cervical spine without pain or hesitation Goal Time Frame: 2-4 Weeks Goal Progress: Progressing Goal 2:: Patient feel neck pain and ESPINOZA 80% improved to 1/10 at worst and intermittent. Goal Time Frame: 2-4 Weeks Goal Progress: 30% Goal 3:: I approp HEOP to limit future problems Goal Time Frame: 2-4 Weeks Goal Progress: Ok, compliance? Goal 4:: Neck oswestry score 5 or less. Goal Time Frame: 2-4 Weeks Goal Progress: Progressing Anticipated Interventions Patient/Client Instruction: Educate patient on: Condition, Plan of Care For the Purpose of:: To decrease pain, To increase ROM, To improve muscle performance and motor function, To improve ability of physical actions for home/community/work/leisure Therapeutic Exercise to Include: Strength training, Postural training, Flexibilty training, Passive ROM, Active ROM, Scapular Strength/Stabilization For the Purpose of:: To decrease pain, To increase ROM, To increase oxygenation perfusion, To improve muscle performance and motor function, To improve ability of physical actions for home/community/work/leisure Manual Therapy Techniques to Include: Mobilization, Passive ROM, Soft tissue mobilization For the Purpose of:: To decrease pain, To increase ROM Thermo therapy (hot pack): Yes For the Purpose of:: To decrease pain Please do not hesitate to contact me at [phone] by phone or if you have questions or concerns regarding this new plan of care! Sincerely, Lane Chance, DPT, OCS, CSCS
--- NOTE | 2021-12-24 17:22 | HP.PTREVAL ---
Dr. Cat Vargas MD, It has been my pleasure to treat SHAYNE RODRIGUEZ over the last 12 visits for Neck pain, ESPINOZA. Please see the progress note below for an update on the physical therapy plan of care! Subjective: Was doing great and then has had a ESPINOZA since 2 hours after last visit. Has not taken anything and gets ESPINOZA one time per month that she takes meds for. Neck 3/10 all day. Had been feeling great in the neck before this last two days. HEP: band strengthening, UT stretch , scap ROM, L rotation, cervical extension. Objective/Function: Extension 68 degrees, L rotation 65 and r rotation 75 all much improved form day ne. After c/s ret ext with slight L rotation, she had 75 extension without deviationa nd 75 bL rotation. Still had some L sided neck pain. Overall doing well but slight set back with ESPINOZA and neck pain. Appropriate to continue for 2-4 weeks for manual and ROM and strength, good prognosis. Plan Plan: new poc. 2x/week for 2-4 weeks for. 1. c/s retraction extension with R rotation acrom and PROM with OP. 2. ext mobs c/s and t/s each visit. 3. progress to cervical [id number] or isometrics including c/s ret). May do STM if L UT remains sore. Pt can do band strengthening on own at home. Balance/Gait/Functional tests - Balance/Special Test Scores Oswestry Neck Score: 8 Goals Goal 1:: Full aROM cervical spine without pain or hesitation Goal Time Frame: 2-4 Weeks Goal Progress: Progressing Goal 2:: Patient feel neck pain and ESPINOZA 80% improved to 1/10 at worst and intermittent. Goal Time Frame: 2-4 Weeks Goal Progress: 75% Goal 3:: I approp HEOP to limit future problems Goal Time Frame: 2-4 Weeks Goal Progress: Goal Met Goal 4:: Neck oswestry score 5 or less. Goal Time Frame: 2-4 Weeks Goal Progress: 8 progressing. Anticipated Interventions Patient/Client Instruction: Educate patient on: Condition, Plan of Care For the Purpose of:: To decrease pain, To increase ROM, To improve muscle performance and motor function, To improve ability of physical actions for home/community/work/leisure Therapeutic Exercise to Include: Strength training, Postural training, Flexibilty training, Passive ROM, Active ROM, Scapular Strength/Stabilization For the Purpose of:: To decrease pain, To increase ROM, To increase oxygenation perfusion, To improve muscle performance and motor function, To improve ability of physical actions for home/community/work/leisure Manual Therapy Techniques to Include: Mobilization, Passive ROM, Soft tissue mobilization For the Purpose of:: To decrease pain, To increase ROM Thermo therapy (hot pack): Yes For the Purpose of:: To decrease pain Please do not hesitate to contact me at [phone] by phone or if you have questions or concerns regarding this new plan of care! Sincerely, Lane Chance, DPT, OCS, CSCS
--- NOTE | 2022-01-07 17:50 | HP.PTREVAL ---
Dr. Cat Vargas MD, It has been my pleasure to treat SHAYNE RODRIGUEZ over the last 16 visits for Neck pain, ESPINOZA. Please see the progress note below for an update on the physical therapy plan of care! Subjective: No ESPINOZA in a couple days. Near 70% better again. Still doing shoulder rolls and cervical flexion. Still gets stress if reading on phone too long. To Dr. Vargas on Tuesday. Objective/Function: Pt doing well with full cervical ROM today and no deviation. some tightness SCM on L with L rotation but good motion. Full UE AROM, good posture. Patient doing well with flexion bias ex. Pt had setback of constant ESPINOZA last week and is back to 70% better and appropriate to continue to progress past this point. Goals appropriate and fair prognosis to meet them over next four weeks. Plan Plan: weekly x 3-4 weeks to progress home cervical strength adn traction as needed/helpful. May do STM with traction if pain or ESPINOZA returns. Balance/Gait/Functional tests - Balance/Special Test Scores Oswestry Neck Score: 8 Goals Goal 1:: Full aROM cervical spine without pain or hesitation Goal Time Frame: 2-4 Weeks Goal Progress: Goal Met Goal 2:: Patient feel neck pain and ESPINOZA 80% improved to 1/10 at worst and intermittent. Goal Time Frame: 2-4 Weeks Goal Progress: 75%, back on track Goal 3:: I approp HEOP to limit future problems Goal Time Frame: 2-4 Weeks Goal Progress: needs strength progressio Goal 4:: Neck oswestry score 5 or less. Goal Time Frame: 2-4 Weeks Goal Progress: 8 progressing. Anticipated Interventions Patient/Client Instruction: Educate patient on: Condition, Plan of Care For the Purpose of:: To decrease pain, To increase ROM, To improve muscle performance and motor function, To improve ability of physical actions for home/community/work/leisure Therapeutic Exercise to Include: Strength training, Postural training, Flexibilty training, Passive ROM, Active ROM, Scapular Strength/Stabilization For the Purpose of:: To decrease pain, To increase ROM, To increase oxygenation perfusion, To improve muscle performance and motor function, To improve ability of physical actions for home/community/work/leisure Manual Therapy Techniques to Include: Mobilization, Passive ROM, Soft tissue mobilization For the Purpose of:: To decrease pain, To increase ROM Thermo therapy (hot pack): Yes For the Purpose of:: To decrease pain Please do not hesitate to contact me at [phone] by phone or if you have questions or concerns regarding this new plan of care! Sincerely, Lane Chance, DPT, OCS, CSCS
--- NOTE | 2022-03-02 18:40 | HP.PT.NRP ---
SHAYNE RODRIGUEZ was seen in my office for initial evaluation on 11/10/21. The following Plan of Care was established for this patient: Initial Frequency: 3x /Week Initial Duration: 2-4 Weeks Patient/Client Instruction: Educate patient on: Condition, Plan of Care For the Purpose of:: To decrease pain, To increase ROM, To improve muscle performance and motor function, To improve ability of physical actions for home/community/work/leisure Therapeutic Exercise to Include: Strength training, Postural training, Flexibilty training, Passive ROM, Active ROM, Scapular Strength/Stabilization For the Purpose of:: To decrease pain, To increase ROM, To increase oxygenation perfusion, To improve muscle performance and motor function, To improve ability of physical actions for home/community/work/leisure Manual Therapy Techniques to Include: Mobilization, Passive ROM, Soft tissue mobilization For the Purpose of:: To decrease pain, To increase ROM Thermo therapy (hot pack): Yes For the Purpose of:: To decrease pain This patient was last seen in our office 01/13/22. Pertinent comments regarding their Physical therapy will appear below: Pt seen 17 visits and was 70% better. She was to continue weekly for 3 more weeks but did not schedule or attend. At this point, it has been over 8 weeks and i will discontinue from my care. At this point I will be discontinuing this patient from physical therapy. I would be happy to see this patient again in the future if found appropriate by the physician. Thank you! Lane Chance, DPT, OCS, CSCS Balance/Gait/Functional tests - Balance/Special Test Scores Oswestry Neck Score: 8
== END 2022-01-13 19:00 | disposition home or self-care (01) ==
LOC: PT 16:30
PROVIDERS: PCP Family Medicine; Referring Provider Family Medicine; Visit Provider Family Medicine
DX: G44.209 Tension-type headache, unspecified, not intractable (principal)
CPT/HCPCS: 97012; 97110; 97140; 97161; 97164; 97530

== ENCOUNTER → 2022-03-15 | Outpatient (CLI) | payer OTHER, SELFPAY ==
[2022-03-15 16:25] LABS: Estradiol 55.1 pg/mL
[2022-03-15 16:26] LABS: Progesterone Level 22.75 ng/mL (See Comment)
== END | disposition home or self-care (01) ==
LOC: WOBLAB 15:43
PROVIDERS: PCP Family Medicine; Visit Provider Obstetrics & Gynecology
DX: Z79.890 Hormone replacement therapy (principal)
CPT/HCPCS: 36415; 82670; 84144

== ENCOUNTER → 2022-04-06 | Outpatient (CLI) | payer OTHER, SELFPAY ==
--- NOTE | 2022-04-06 16:28 | BI_ITS ---
MAMMOGRAPHY - BILATERAL SCREENING REASON FOR EXAM: Female, 51 years old. Routine annual screening examination. PERTINENT HISTORY: Grandmother with breast cancer. TECHNIQUE: Digital bilateral breast eugenio (3D mammographic acquisition) in the CC and MLO projections. 2-D mediolateral oblique (MLO) and craniocaudad (CC) views of both breasts were obtained. CAD: Full Field Digital Mammography with Computer Added Detection was performed. COMPARISON: Comparison is made with prior study dated 12/11/2020 and 04/03/2019. FINDINGS: Breast Composition: The breasts are heterogeneously dense, which may obscure small masses. There is an 8.5 mm slightly spiculated nodule in the axillary region of the right breast as seen on the mediolateral oblique view. I suspect this to lie within the deep slightly medial aspect of the right breast on the craniocaudad view. This was not seen on prior study. Additional mammographic views will be obtained. No other significant abnormalities are identified. BI/SCRN MAMM (CAD)W/EUGENIO BILAT IMPRESSION: New 8.5 mm slightly speckling nodule in the axillary region of the right breast as seen on the mediolateral oblique view. The patient will be recalled for 90 degree lateral and compression spot views. Recall Side: Right Breast ASSESSMENT CATEGORY: BIRADS Category 0: Incomplete. Need additional imaging evaluation. A letter regarding these results will be sent to the patient by the facility within 30 days. Approximately 10% of breast cancers are not detected by mammography. A normal mammogram should not delay biopsy of a clinically suspicious abnormality. [id number] Electronically Signed: Seth Steel MD at 9:35 EDT ,
== END | disposition home or self-care (01) ==
PROVIDERS: PCP Family Medicine; Referring Provider Obstetrics & Gynecology; Visit Provider Obstetrics & Gynecology
DX: Z12.31 Encounter for screening mammogram for malignant neoplasm of breast (principal); Z80.3 Family history of malignant neoplasm of breast; N63.31 Unspecified lump in axillary tail of the right breast
CPT/HCPCS: 77063; 77067

== ENCOUNTER → 2022-04-14 | Outpatient (CLI) | payer OTHER, SELFPAY ==
--- NOTE | 2022-04-14 09:07 | BI_ITS ---
MAMMOGRAPHY - UNILATERAL DIAGNOSTIC: RIGHT BREAST REASON FOR EXAM: Female, 51 years old. Abnormal screening mammogram. PERTINENT HISTORY: Grandmother with breast cancer. TECHNIQUE: Compression spot views of the right breast in the mediolateral oblique and craniocaudad projections were obtained. CAD: Full Field Digital Mammography with Computer Added Detection was performed. COMPARISON: Comparison is made with prior examination dated 04/06/2022. FINDINGS: Breast Composition: The breasts are heterogeneously dense, which may obscure small masses. Persistent 8.5 mm slightly spiculated nodule in the upper slightly medial aspect of the right breast. Correlation with ultrasound is recommended. No other significant abnormalities are identified. BI/DIAG MAMM W/CAD, UNILAT IMPRESSION: Persistent 8.5 mm slightly located nodule in the upper slightly medial aspect of the right breast. Correlation with ultrasound is recommended. ASSESSMENT CATEGORY: BIRADS Category 0: Incomplete. Need additional imaging evaluation. A letter regarding these results will be sent to the patient by the facility within 30 days. Approximately 10% of breast cancers are not detected by mammography. A normal mammogram should not delay biopsy of a clinically suspicious abnormality. Electronically Signed: Seth Steel MD at 10:03 EDT ,
--- NOTE | 2022-04-14 09:07 | US_ITS ---
STUDY: ULTRASOUND BREAST - RIGHT REASON FOR EXAM: Female, 51 years old. Abnormal screening mammogram. TECHNIQUE: Axial and longitudinal images of the RIGHT breast were performed with a high resolution ultrasound transducer. # OF IMAGES: 13 COMPARISON: Comparison is made with prior mammogram done earlier in the day. FINDINGS: RIGHT Breast: The mammographic abnormality corresponds to a 4 mm x 5 mm x 5 mm hypoechoic solid nodule with posterior shadowing at the 1 o''clock position of the breast at 5 cm from nipple. Biopsy recommended. US/Breast Limited Unilateral IMPRESSION: 4 mm x 5 mm x 5 mm hypoechoic solid nodule with posterior shadowing at the 1 o''clock position in the breast a 5 cm some nipple. Biopsy recommended. ASSESSMENT CATEGORY: BIRADS Category 4: Suspicious - Biopsy Should Be Considered. A letter regarding these results will be sent to the patient by the facility within 30 days. Electronically Signed: Seth Steel MD at 10:04 EDT ,
== END | disposition home or self-care (01) ==
LOC: OPBI 09:06
PROVIDERS: PCP Family Medicine; Visit Provider Obstetrics & Gynecology
DX: N63.10 Unspecified lump in the right breast, unspecified quadrant (principal); Z80.3 Family history of malignant neoplasm of breast; R92.2 Inconclusive mammogram
CPT/HCPCS: 76642; 77065

== ENCOUNTER → 2022-04-16 | Outpatient (CLI) | payer OTHER, SELFPAY ==
--- NOTE | 2022-04-16 | IMM_PTH ---
PATIENT: SHAYNE RODRIGUEZ LOC: [facility] U#:[id number] AGE/SX: 51/F ROOM: RE04/16/[address]: Dr. Amanda Castorena MD : 1970 BED: DIS: 04/16/2022 SPEC #: [id number] RECD: 04/19/22 11:08 STATUS: ELENO REQ #: [id number] ISSA: 04/16/22 00:[address]: Amanda Castorena DEPT: IMMUNOHISTOCHEMISTRY RECD BY: Isabelle Desai ENTERED: 04/19/22 11:09 SP TYPE: IMMUNO OTHR DR: Dr. Cat Vargas MD Tissues: Right breast, NOS Procedures: CALPONIN-1 (add) CK5-6 (add) CK8 (add) E-CAD (add) HER2 ROMARIO (add) KI-67 (add) P53 (add) VA (add) P40 (add) ER (initial) PHYSICIAN & INSTITUTION [address] [address] SPECIMEN INFORMATION: Tissue Source: Right breast mass, 1 o?clock, 5 cm from nipple, core biopsy Clinical Info: Right breast mass Specimen Number: [id number] CPT code: 18290, 21945 x6, 70444 x3 METHODOLOGY: Deparaffinized sections of prefer/formalin-fixed tissue or PAP/DQ stained slides are incubated with monoclonal/polyclonal antibodies/oligonucleotide probes. Localization is made via biotin free immunoperoxidase method. Appropriate controls are performed and reacted as expected. Results on target cell population are indicated in the following table: RESULTS: ANTIBODY / CLONE RESULT E-Cad (ECH-6) positive CK8 ([id number]) positive Calponin-1 (ZM079H) negative CK5-6 (D5 & 1684) negative P40 (BC28) negative P53 (DO-7) positive, weak, <1% Ki-67 (30-9) positive, low, ~10% MORPHOMETRIC ANALYSIS ER (clone 6F11) >95%, moderate intensity VA (clone 16/1E2) 61%, moderate intensity Her-2Neu (clone CB11) 0 The prognostic test for HER2 is performed on formalin-fixed paraffin embedded tissue. A 3+ (positive) staining pattern is defined as intense, homogeneous, complete, circumferential membranous staining in >10% of contiguous tumor cells. A similar weak (2+) staining pattern is interpreted as equivocal. SOCRATES follow-up testing is recommended for all equivocal cases. Positivity/negativity for ER/VA is reported if > or < 1% of the tumor cells are immuno- reactive, respectively. The ASCO/CAP criteria is used for scoring. Reference: Journal of Clinical Oncology, 2013; 31:5908-3802 & 2010; 16:7180-8016. Duration of fixation: 58.5 Hrs; Sample Adequate: Yes. These assays have not been validated on decalcified tissues. Results should be interpreted with caution given the likelihood of false negativity on decalcified specimens. These tests were developed and their performance characteristics determined by [facility]. They may not have been cleared or approved by the U.S. Food and Drug Administration. The FDA has determined that such clearance or approval is not necessary. The above immunohistochemical/dualISH markers are ordered and reviewed by the Pathologist. INTERPRETATION: Right breast mass, 1 o?clock, 5 cm from nipple, core biopsy: Invasive ductal carcinoma, nuclear grade 1. Positive for estrogen receptors (favorable prognostic indicator). Positive for progesterone receptors (favorable prognostic indicator). Negative for overexpression of [id number]. SJ:connie 04/20/2022
--- NOTE | 2022-04-16 08:45 | BRBX_PTH ---
PATIENT: SHAYNE RODRIGUEZ [facility] U#:[id number] AGE/SX: 51/F ROOM: RE04/16/[address]: Dr. Amanda Castorena MD : 1970 BED: DIS: 04/16/2022 SPEC #: [id number] RECD: 04/16/22 11:11 STATUS: ELENO IVAN #: [id number] ISSA: 04/16/22 08:[address]: Amanda Castorena DEPT: SURGICAL PATHOLOGY RECD BY: Myrna Church ENTERED: 04/16/22 11:54 SP TYPE: BREAST BX OTHR DR: Dr. Cat Vargas MD Tissues: Right breast, NOS Procedures: Surgery Specimen Level IV HEADER OPERATION: Right breast biopsy PRE-OP DIAGNOSIS: Right breast mass, suspicious for cancer TISSUE SUBMITTED: Right breast mass 1 o?clock, 5 cm from nipple MICROSCOPIC DIAGNOSIS Right breast mass, 1 o?clock, 5 cm from nipple, core biopsy: Invasive ductal carcinoma, nuclear grade 1 (0.5 cm in greatest length). See comment. JAKE:connie 04/19/2022 COMMENT Immunohistochemistry ([id number]) supports the above diagnosis. ER/AR/Whw3vvo studies are being performed on sections of tumor and the results from this study will be reported separately ([id number]). MICROSCOPIC DESCRIPTION Slides are reviewed. GROSS DESCRIPTION Received in fixative is one container labeled with the patient's name and designated right breast. The specimen consists of multiple elongated fragments of bhakta-yellow fibroadipose tissue that in aggregate measure 2.5 x 1 x 0.1 cm. The entire specimen is submitted in one cassette. / JAKE:connie 04/16/2022 TC:0 CPT: 15146 ADDENDUM ADDENDUM ADDENDUM ADDENDUM ADDENDUM ADDENDUM ADDENDUM ADDENDUM 06/08/2022 10:18 ADDENDUM 06/08/2022 10:18 ADDENDUM 06/08/2022 10:18 ADDENDUM 06/08/2022 10:18 ADDENDUM 06/08/2022 10:18 An order for Oncotype testing was received from Dr. Calderón. This necessitated case review, block and slide selection by pathologist at [facility]. Breast Cancer Recurrence Score = 10 Results of the complete Oncotype testing ([employer] report) are viewable in EMR under: Reports - Pathology - Lab Pathology Report, Scanned.
== END | disposition home or self-care (01) ==
LOC: LABSPEC 11:29
PROVIDERS: PCP Family Medicine; Referring Provider Surgery; Visit Provider Surgery
DX: C50.211 Malignant neoplasm of upper-inner quadrant of right female breast (principal)
CPT/HCPCS: 88305; 88341; 88342

== ENCOUNTER → 2022-04-29 | Outpatient (CLI) | payer OTHER, SELFPAY ==
--- NOTE | 2022-04-29 12:43 | MRI_ITS ---
STUDY: BILATERAL BREAST MR WITHOUT AND WITH CONTRAST REASON FOR EXAM: Female, 51 years old. Right invasive duct carcinoma. Grandmother with breast cancer. TECHNIQUE: Multi-sequence multi-echo imaging of both breasts was performed with a dedicated breast coil. T1-weighted and T2-weighted images were performed before the administration of contrast. T1-weighted images were also performed after the intravenous administration of IV 24 cc of Dotarem contrast. COMPARISON: Right breast ultrasound dated 04/14/2022 and right diagnostic mammogram dated 04/14/2022. Screening mammogram dated 04/06/2022. FINDINGS: RIGHT BREAST: The breast tissue is scattered fibroglandular densities with minimal background enhancement. Irregular enhancing mass in the upper slightly inner quadrant of the right breast 7 cm behind the nipple measuring 1.4 cm x 5 mm x 9 mm. Tissue clip marker artifact within this mass. LEFT BREAST: The breast tissue is scattered fibroglandular densities with minimal background enhancement. There are no abnormal enhancing masses or areas of non-mass enhancement in the left breast. Multiple lymph nodes in both axilla with no signs of abnormalities. There is no abnormality in the visualized regions of the chest or liver. MRI/Breast Bilateral W/O and W IMPRESSION: Irregular enhancing mass in the right breast corresponding to the ultrasonographic and mammographic findings. No other abnormality. CATEGORY: BIRADS Category 6: Known Biopsy-Proven Malignancy - Appropriate Action Should Be Taken. A letter regarding these results will be sent to the patient by the facility within 30 days. Electronically Signed: Velasquez Turk, at 10:27 EDT ,
[2022-04-29 13:16] LABS: CREATININE FINGERSTICK < 0.9 mg/dL (0.55-1.02); EGFR FINGERSTICK > 60.0000 mL/min (>60)
== END | disposition home or self-care (01) ==
LOC: MRI 12:31
PROVIDERS: PCP Family Medicine; Referring Provider Surgery; Visit Provider Surgery
DX: C50.911 Malignant neoplasm of unspecified site of right female breast (principal)
CPT/HCPCS: 77049; A9575; A4216; C8908

== ENCOUNTER 2022-05-14 07:08 | Day surgery (SDC) | payer OTHER, SELFPAY ==
[2022-05-14] VITALS (9 sets, daily range): BP systolic 99–147; BP diastolic 67–93; PULSE 68–93; RESP 16; TEMP 36–37.3; O2SAT 94–100; BMI 42.5
--- NOTE | 2022-05-14 | AXNB_PTH ---
PATIENT: SHAYNE RODRIGUEZ LOC: [facility] – [place] U#:[id number] AGE/SX: 51/F ROOM: RE05/14/[address]: Dr. Amanda Castorena MD : 1970 BED: DIS: 05/14/2022 SPEC #: [id number] RECD: 05/14/22 10:56 STATUS: ELENO REFilomena #: [id number] ISSA: 05/14/22 00:[address]: Amanda Castorena DEPT: SURGICAL PATHOLOGY RECD BY: Isabelle Desai ENTERED: 05/14/22 11:13 SP TYPE: AX NODE BX OTHR DR: Dr. Cat Vargas MD Tissues: A - Axillary lymph node, NOS B - Axillary lymph node, NOS C - Right breast, NOS Procedures: Frozen Section (charge) Surgery Specimen Level V HEADER OPERATION: Breast ultrasound-guided localization lumpectomy with sentinel lymph node PRE-OP DIAGNOSIS: Invasive ductal carcinoma of right breast TISSUE SUBMITTED: A - [place] lymph node, B - Additional sentinel lymph node, C - Right breast lumpectomy (long stitch - lateral, short stitch - superior) FROZEN SECTION DIAGNOSIS A. Right axillary sentinel lymph node, biopsy: One out of one lymph node negative for carcinoma. AM: 05/14/2022 B. Left axillary additional sentinel lymph node, biopsy: One out of one lymph node negative for carcinoma. AM: 05/14/2022 Case has been reviewed in consultation with Dr. Jones who concurs with the above diagnosis. IDC:SJ MICROSCOPIC DIAGNOSIS A. Right axillary sentinel lymph node, biopsy: One out of one lymph node negative for carcinoma. See comment. B. Left axillary additional sentinel lymph node, biopsy: One out of one lymph node negative for carcinoma. C. Right breast, lumpectomy: Invasive ductal carcinoma. See synoptic report below. AM: 05/19/2022 COMMENT A. Immunohistochemistry ([id number]) supports the above diagnosis. C. INVASIVE BREAST CANCER SUMMARY: Procedure - excision with wire guidance Specimen: Type - partial breast Size ? 6.5 x 4 x 3 cm Laterality ? right breast Tumor: Site ? not applicable Size ? 1 x 0.7 x 0.5 cm Histologic type - invasive ductal carcinoma. Focality - single focus of carcinoma. Histologic Grade ([place] grade): Glandular/tubular differentiation - score 3 Nuclear pleomorphism - score 2 Mitotic count ? score 1 Overall grade - 2 (score of 6) Ductal carcinoma in situ - Not present Lobular carcinoma in situ (LCIS) ? not present Tumor extension: Skin ? no skin present. Nipple ? no nipple present. Skeletal muscle ? no skeletal muscle present. Margins: Distance of invasive carcinoma from closest margin ? 4 mm from medial margin. Lymph nodes: Number of sentinel lymph nodes examined - 2 Total number of sentinel lymph nodes - 2 No evidence of macrometastases, micrometastases or isolated tumor cells. See specimens A & B. Immunohistochemistry ([id number]) supports the above diagnosis. Treatment effect - Unknown Lymphvascular invasion ? not identified Additional pathologic findings ? changes of previous biopsy, fibrocystic change and focal intraductal hyperplasia without atypia. Ancillary studies - previously performed on section of tumor ([id number] / [id number]). ER ? positive (>95%, moderate intensity) ID ? positive (61%, moderate intensity) Her2 jade ? negative (0) Ki67 ? positive, low (approximately 10%) PATHOLOGIC STAGE: T1b N0(sn) Mx The above summary is in compliance with [employer] [place] [employer] (CAP) Cancer Protocols Checklist and [place] Joint Committee on Cancer (AJCC), Staging Manual, 8th Ed. Reference is made to the patient?s previous breast biopsy [id number] in which invasive ductal carcinoma was identified. Case has been reviewed in consultation with Dr. Jones who concurs with the above diagnosis. IDC:SJ MICROSCOPIC DESCRIPTION Slides are reviewed. GROSS DESCRIPTION A - Received fresh for frozen section consultation labeled with the patient's name is a specimen designated sentinel lymph node. The specimen consists of an ovoid fragment of bhakta-pink soft tissue measuring 1.4 x 1.2 x 0.5 cm. The specimen is bisected and totally submitted for frozen section consultation in one cassette. / AM: 05/14/2022 B - Received fresh for frozen section consultation labeled with the patient's name is a specimen designated additional sentinel lymph node. The specimen consists of an ovoid fragment of pink-bhakta soft tissue measuring 2 x 1.5 x 1.2 cm. The specimen is bisected and totally submitted for frozen section consultation in one cassette. / AM: 05/14/2022 C - Received fresh for intraoperative consultation labeled with the patient's name is a specimen designated right breast lumpectomy. The specimen consists of a piece of fibroadipose tissue with needle localization measuring 6.5 x 4 x 3 cm. The specimen is oriented as follows: long stitch - lateral, short stitch - superior. The specimen is inked as follows: anterior - yellow, posterior - black, superior - blue, inferior - green, medial - red and lateral - orange. Serial sections reveal a bhakta, indurated tumor mass measuring 1 x 0.7 x 0.5 cm and it is 0.4 cm away from the closest medial margin. This information is conveyed to the surgeon intraoperatively. Sections of the rest of the specimen reveal bhakta-yellow adipose cut surfaces mixed with fibrous areas. Pickling Solution Maker sections are submitted in 12 cassettes as follows: 1 - perpendicular anterior, posterior and inferior margins, 2 - perpendicular superior and lateral margins, 3 - tumor with closest medial margin, 4-6 - Pickling Solution Maker sections adjacent to the tumor, 7-12 - Pickling Solution Maker sections away from the tumor. Sections will be submitted after additional fixation. / SJ:connie 05/17/2022 TC:0 CPT: 30110 x3, 32867 x2
--- NOTE | 2022-05-14 | IMM_PTH ---
PATIENT: SHAYNE RODRIGUEZ LOC: [facility] [place] U#:[id number] AGE/SX: 51/F ROOM: RE05/14/[address]: Dr. Amanda Castorena MD : 1970 BED: DIS: 05/14/2022 SPEC #: [id number] RECD: 05/19/22 13:05 STATUS: ELENO REQ #: [id number] ISSA: 05/14/22 00:[address]: Amanda Castorena DEPT: IMMUNOHISTOCHEMISTRY RECD BY: Isabelle Desai ENTERED: 05/19/22 13:09 SP TYPE: IMMUNO OTHR DR: Dr. Cat Vargsa MD Tissues: A - Axillary lymph node, NOS B - Axillary lymph node, NOS Procedures: CK7 (add) Pankeratin (initial) PHYSICIAN & INSTITUTION [place] [id number] SPECIMEN INFORMATION: Tissue Source: A ? Right axillary sentinel lymph node, B ? Right axillary sentinel lymph node Clinical Info: Invasive ductal carcinoma of right breast Specimen Number: [id number] A & B CPT code: 55025 x2, 53765 x2 METHODOLOGY: Deparaffinized sections of prefer/formalin-fixed tissue or PAP/DQ stained slides are incubated with monoclonal/polyclonal antibodies/oligonucleotide probes. Localization is made via biotin free immunoperoxidase method. Appropriate controls are performed and reacted as expected. Results on target cell population are indicated in the following table: RESULTS: ANTIBODY / CLONE RESULT Block A AE1-3 (AE1/AE3/PCK26) negative CK7 (OV-TL12/30) negative Block B AE1-3 (AE1/AE3/PCK26) negative CK7 (OV-TL12/30) negative These tests were developed and their performance characteristics determined by [facility]. They may not have been cleared or approved by the U.S. Food and Drug Administration. The FDA has determined that such clearance or approval is not necessary. The above immunohistochemical/dualISH markers are ordered and reviewed by the Pathologist. INTERPRETATION: A. Right axillary sentinel lymph node, biopsy: One out of one lymph node negative for carcinoma. B. Right axillary sentinel lymph node, biopsy: One out of one lymph node negative for carcinoma. AM:connie 05/20/2022
--- NOTE | 2022-05-14 | AXNB_PTH ---
PATIENT: SHAYNE RODRIGUEZ LOC: [facility] [place] U#:[id number] AGE/SX: 51/F ROOM: RE05/14/[address]: Dr. Amanda Castorena MD : 1970 BED: DIS: 05/14/2022 SPEC #: [id number] RECD: 05/14/22 10:56 STATUS: ELENO REFilomena #: [id number] ISSA: 05/14/22 00:[address]: Amanda Castorena DEPT: SURGICAL PATHOLOGY RECD BY: Isabelle Desai ENTERED: 05/14/22 11:13 SP TYPE: AX NODE BX OTHR DR: Dr. Cat Vargas MD Tissues: A - Axillary lymph node, NOS B - Axillary lymph node, NOS C - Right breast, NOS Procedures: Frozen Section (charge) Surgery Specimen Level V HEADER OPERATION: Breast ultrasound-guided localization lumpectomy with sentinel lymph node PRE-OP DIAGNOSIS: Invasive ductal carcinoma of right breast TISSUE SUBMITTED: A - [place] lymph node, B - Additional sentinel lymph node, C - Right breast lumpectomy (long stitch - lateral, short stitch - superior) FROZEN SECTION DIAGNOSIS A. Right axillary sentinel lymph node, biopsy: One out of one lymph node negative for carcinoma. AM: 05/14/2022 B. Right axillary additional sentinel lymph node, biopsy: One out of one lymph node negative for carcinoma. AM: 05/14/2022 Case has been reviewed in consultation with Dr. Jones who concurs with the above diagnosis. IDC:SJ MICROSCOPIC DIAGNOSIS A. Right axillary sentinel lymph node, biopsy: One out of one lymph node negative for carcinoma. See comment. B. Right axillary additional sentinel lymph node, biopsy: One out of one lymph node negative for carcinoma. C. Right breast, lumpectomy: Invasive ductal carcinoma. See synoptic report below. AM:connie 05/19/2022 AM:connie 05/20/2022 COMMENT A. Immunohistochemistry ([id number]) supports the above diagnosis. C. INVASIVE BREAST CANCER SUMMARY: Procedure - excision with wire guidance Specimen: Type - partial breast Size ? 6.5 x 4 x 3 cm Laterality ? right breast Tumor: Site ? not applicable Size ? 1 x 0.7 x 0.5 cm Histologic type - invasive ductal carcinoma. Focality - single focus of carcinoma. Histologic Grade ([place] grade): Glandular/tubular differentiation - score 3 Nuclear pleomorphism - score 2 Mitotic count ? score 1 Overall grade - 2 (score of 6) Ductal carcinoma in situ - Not present Lobular carcinoma in situ (LCIS) ? not present Tumor extension: Skin ? no skin present. Nipple ? no nipple present. Skeletal muscle ? no skeletal muscle present. Margins: Distance of invasive carcinoma from closest margin ? 4 mm from medial margin. Lymph nodes: Number of sentinel lymph nodes examined - 2 Total number of sentinel lymph nodes - 2 No evidence of macrometastases, micrometastases or isolated tumor cells. See specimens A & B. Immunohistochemistry ([id number]) supports the above diagnosis. Treatment effect - Unknown Lymphvascular invasion ? not identified Additional pathologic findings ? changes of previous biopsy, fibrocystic change and focal intraductal hyperplasia without atypia. Ancillary studies - previously performed on section of tumor ([id number] / [id number]). ER ? positive (>95%, moderate intensity) [place] ? positive (61%, moderate intensity) Her2 jade ? negative (0) Ki67 ? positive, low (approximately 10%) PATHOLOGIC STAGE: T1b N0(sn) Mx The above summary is in compliance with [employer] [place] [employer] (CAP) Cancer Protocols Checklist and [place] Joint Committee on Cancer (AJCC), Staging Manual, 8th Ed. Reference is made to the patient?s previous breast biopsy [id number] in which invasive ductal carcinoma was identified. Case has been reviewed in consultation with Dr. Jones who concurs with the above diagnosis. IDC:SJ MICROSCOPIC DESCRIPTION Slides are reviewed. GROSS DESCRIPTION A - Received fresh for frozen section consultation labeled with the patient's name is a specimen designated sentinel lymph node. The specimen consists of an ovoid fragment of bhakta-pink soft tissue measuring 1.4 x 1.2 x 0.5 cm. The specimen is bisected and totally submitted for frozen section consultation in one cassette. / AM: 05/14/2022 B - Received fresh for frozen section consultation labeled with the patient's name is a specimen designated additional sentinel lymph node. The specimen consists of an ovoid fragment of pink-bhakta soft tissue measuring 2 x 1.5 x 1.2 cm. The specimen is bisected and totally submitted for frozen section consultation in one cassette. / AM: 05/14/2022 C - Received fresh for intraoperative consultation labeled with the patient's name is a specimen designated right breast lumpectomy. The specimen consists of a piece of fibroadipose tissue with needle localization measuring 6.5 x 4 x 3 cm. The specimen is oriented as follows: long stitch - lateral, short stitch - superior. The specimen is inked as follows: anterior - yellow, posterior - black, superior - blue, inferior - green, medial - red and lateral - orange. Serial sections reveal a bhakta, indurated tumor mass measuring 1 x 0.7 x 0.5 cm and it is 0.4 cm away from the closest medial margin. This information is conveyed to the surgeon intraoperatively. Sections of the rest of the specimen reveal bhakta-yellow adipose cut surfaces mixed with fibrous areas. Advance Agent sections are submitted in 12 cassettes as follows: 1 - perpendicular anterior, posterior and inferior margins, 2 - perpendicular superior and lateral margins, 3 - tumor with closest medial margin, 4-6 - Advance Agent sections adjacent to the tumor, 7-12 - Advance Agent sections away from the tumor. Sections will be submitted after additional fixation. / SJ:connie 05/17/2022 TC:0 CPT: 66264 x3, 67212 x2
[2022-05-14] MEDS: Lactated Ringers 1,000 ML 15 ML IV ×2 (07:40→10:02)
--- NOTE | 2022-05-14 08:00 | NM_ITS ---
PROCEDURE: NUCLEAR MEDICINE Injection Bruin Node - RIGHT breast(s). REASON FOR EXAM: Female, 51 years old. Right breast cancer. TECHNIQUE: Bruin node localization using radionuclide methods of the RIGHT breast(s) was performed following subcutaneous administration of 1.1 mCi of of sulfur colloid Tc-99m. FINDINGS: 1.1 mCi of technetium labeled sulfur colloid was injected subcutaneously in the right supra areolar region for sentinel node imaging. NM/Lymph Node Injection Only IMPRESSION: 1.1 mCi of technetium labeled sulfur colloid was injected in 4 equal aliquots in the right supra areolar region for sentinel node imaging. Electronically Signed: Seth Steel MD at 9:09 EDT ,
--- NOTE | 2022-05-14 09:22 | HP.PCM_ITS ---
History and Physical Date of Admission: 05/14/22 Date of Service:? 04/23/22 MR#: [id number] Acct: [id number] Name:SHAYNE OWENS Rep #: [id number] : 1970 ? ? Provider: Dr. Amanda Castorena MD Age/Sex:? 51/F ? ? 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 Amanda Castorena MD) Allergy to animals Anxiety Back pain Environmental allergies Surgical History?(Updated 04/23/22 @ 14:17 by Eryn Burgos) History of breast biopsy (~03/2022) Hx of cholecystectomy Hx of tonsillectomy Family History? Son AsthmaFather Bowel diseaseMother Respiratory diseaseGrandmother Breast cancer Thyroid disorderOther Colon cancer Diabetes Social History? Smoking Status:? Former smoker alcohol intake:? current Alcohol type: wine what type of physical activity do you participate in:? running and weight training frequency:? 3-4 times per week HPI HPI HPI: SHAYNE RODRIGUEZ, is a 51 F who presents to the office today for discussion of right breast biopsy.? IDC grade 1, ER >95%, IL 61%, [id number] neg.? Exam Const General: cooperative, healthy appearing and comfortable Chest Other: right breast biopsy site- healing well. Assessment and Plan Assessment and Plan (1) Invasive ductal carcinoma of right breast: ?Status:?Acute ?Comment: Grade 1, ER greater than 95%, IL 61%, HER2/jade negative, 5 mm on ultrasound and biopsy ? ? ? Orders: Referrals Radiation Oncology ? C50.911 - Malignant neoplasm of unspecified site of right female breast ? Plan Patient has stopped taking her hormone replacement when she got the diagnosis.? Patient has been on it for about a year. With the patient's breast MRI as well as genetic test results.? Once those are completed we will discuss with patient and make official plan for surgery. I have given the patient options for initial surgical treatment. Options are the following: lumpectomy followed by radiation therapy vs. mastectomy vs. mastectomy followed by immediate reconstruction. I have described the procedures to the patient. I have described the advantages and disadvantages of the options, but I have told the patient that among the options, the survival rate for breast cancer is the same. I have told the patient that with all the surgeries that a sentinel lymph node biopsy is required. I have described the procedure of sentinel lymph node biopsy to the patient. I have told the patient that if the biopsy is positive for metastatic disease, then a full axillary lymph node dissection is required. I have told the patient that adjuvant chemotherapy will be required should the lymph nodes reveal metastatic disease. Also, a full lymph node dissection will increase the risk for lymphedema, especially if there are 4 or more lymph nodes positive for metastatic disease and radiation to the axilla is also required. I have told the patient the risks of surgery, including but not limited to: infection, bleeding, scar tissue, seroma and persistent seroma, lymph leak, injury to any blood vessels, injury to any nerves (particularly the long thoracic, the thoracodorsal, and the second intercostal brachial and the resultant sequelae), lymphedema, cosmetic deformity, dysesthesias, wound infections, further surgery (especially if margins are not clear), complications of anesthesia, etc.? the patient understands. The patient will think about the options and discuss it further with the family. The patient will contact me when she decides what the patient wishes to do--- after we have discussed the MRI and genetic test results. I have answered all the patient?s questions at this point to her satisfaction and she has no further questions. Amanda Castorena M.D. Pager: [phone] [facility] [address] [place] [address], [address] [place] [id number] Office: [phone] Plan Details Goals & Barriers: Goals Decrease pain and inflammation Increase ROM Barriers Reverse of cervical curve Coding Level of Care Code Off vis,est,level 4 Diagnoses Invasive ductal carcinoma of right breast? C50.911 04/25/22 1410 <Electronically signed by Amanda Castorena MD> Date Amanda Castorena MD
[2022-05-14] MEDS: Cefazolin 2 GM in 0.9% Normal Saline 100 ML IV (09:44)
[2022-05-14] MEDS: Isosulfan Blue 1% 5 ML Vial (10:05)
[2022-05-14] MEDS: 0.9% Normal Saline (Pres. free 10 ML Vial (10:06)
--- NOTE | 2022-05-14 11:41 | BI_ITS ---
SURGICAL BREAST SPECIMEN RADIOGRAPH CLINICAL: Document presence of tissue clip marker in biopsy specimen. FINDINGS: Specimen shows presence of tissue clip marker. Electronically Signed: Seth Steel MD at 12:51 EDT , BI/Breast Biopsy Specimen IMPRESSION: undefined
--- NOTE | 2022-05-14 11:42 | OP.PCM_ITS ---
Report of Operation Date of Procedure: 05/14/22 Pre-Operative Diagnosis: Right breast invasive ductal carcinoma Post-Operative Diagnosis: Same Surgery/Procedure Performed:: Right ultrasound-guided lumpectomy, sentinel lymph node biopsy with injection of nuclear tracer and blue dye. Surgeon: Amanda Castorena Type of Anesthesia: General/Supplemental Anesthesiologist: Ortega Dyer Special Medications: Ancef 2 g IV x1 Specimen's removed: 1. Right sentinel node, 2 additional right lymph node (both frozen and sentinel nodes negative), 3 right lumpectomy Estimated Blood Loss (mL): 20 cc Description of Procedure: Synoptic Portion: Element Response Options Operation performed with curative intent. Yes Tracer(s) used to identify sentinel nodes in the upfront surgery (non- neoadjuvant) setting (select all that apply). Nuclear tracer, Lymphazurin blue Tracer(s) used to identify sentinel nodes in the neoadjuvant setting (select all that apply). N/A All nodes (colored or non-colored) present at the end of a dye-filled lymphatic channel were removed. Yes All significantly radioactive nodes were removed. No?radiotracer did not trace well into the axilla?blue node was removed All palpably suspicious nodes were removed. Yes Biopsy-proven positive nodes marked with clips prior to chemotherapy were identified and removed. N/A In radiology the breast tissue was injected with TC-9 9 sulfur colloid. >90 minutes later the patient was taken to the operating room and general anesthesia was induced. 5 cc of Lymphazurin 1% blue dye was injected in the 4 quadrants periareolar along with 10 cc of normal saline. This was massaged gently for 5 minutes. Right breast was prepped in a Kopan's needle was used under ultrasound to identify the lesion. The right breast and axilla were prepped and draped in usual sterile fashion. A timeout was completed verifying correct patient, procedure, site, positioning, special equipment prior to beginning procedure. Handheld gamma probe was used to identify the location of the hottest spot in the axilla. Prior to the incision, the counts were 15. The incision was made in the blue node was identified. The probe was placed in contact with the node in the 10 count was 25. The bed of the node measured 4 counts. One additional palpable node was excised and sent to pathology. No additional blue or hot nodes or palpable were detected. Frozen-- 2 negative lymph nodes. A curvilinear incision was planned in such a way as to minimize the amount of dissection to reach the mass. Flaps were raised in the location of the wire confirmed. The wire was delivered into the wound. 2 silk [id number] stay suture was placed around the wire and used for traction. Dissection was then taken down circumferentially, taking care to include the entire localization needle and wide margin of grossly normal tissue. The specimen and entire localizing wire were removed. The specimen was oriented and sent to radiology with the localization studies. Confirmation was received that the entire target lesion had been resected. The cavities were irrigated. Hemostasis was checked. 3 medium clips were applied at the the deep aspect of the lumpectomy site. The breast and axillary incisions were closed with interrupted sutures of 3-0 Vicryl and subcuticular sutures of 4-0 Monocryl. No attempt was made to close the space. A dressing of fluff gauze and supportive bra placed. The patient tolerated procedure well was taken to the postanesthesia care in stable condition. Complications none
--- NOTE | 2022-05-14 11:52 | DCINST_ITS ---
Discharge Instructions Diet Discharge Diet: No restrictions Activity Discharge Activity: May Not Drive (for 2-3 days or while taking narcotic pain meds.) May shower in (days): 1 Lifting Restrictions: 10 pounds for 1 week. Dressing / Incision Call your doctor if your incision/area has: Continuous Slow Oozing, Sudden Increased Bleeding, Increased Pain/ Swelling and Increased Redness Call your doctor if you observe: Fever of 101 or Higher Suture Line Care: Avoid Pulling/Pushing and Avoid Pinching/Bending Remove Dressing in: 1 day Additional Dressing/Incision Instructions:: Remove bulky dressing tomorrow. May leave any op-site dressing for 3-4 days. Dermabond (glue) was used at the axillary incision this may start to peel off in about 5 days. Okay to remove Steri-Strips from the breast incision in 7 to 10 days with annual follow-up. Follow Up Care Please Follow Up With: Amanda Castorena MD When: Please call [phone] for an appointment to be seen in 2 week. Test Results: Test results from this visit will be discussed in further detail at your follow- up appointment, if applicable. Discharge Plan Admission Attending Provider: Amanda Castorena Primary Care Provider: Cat Vargas Discharge Orders/Prescriptions Prescriptions: New oxycodone-acetaminophen 5-325 mg tablet 1 tab PO Q6H PRN (Reason: pain) 3 Days Qty: 10 0RF Continued cholecalciferol (vitamin D3) 10 mcg (400 unit) capsule 10 mcg PO DAILY biotin 5 mg tablet 5 mg PO DAILY Women's Multivitamin 18 mg-400 mcg- 500 mg-50 mcg tablet 1 tab PO DAILY trazodone 50 MG tablet 50 mg PO QHS atenolol-chlorthalidone 50-25 mg tablet 0.5 tab PO DAILY Label Comments: TAKE 1/2 TABLET BY MOUTHOONCE DAILYT lorazepam 0.5 mg tablet 0.5 mg PO PRN PRN (Reason: Anxiety) Label Comments: TAKE 1 TO 2 TABLETS BYCMOUTH EVERY 4 TO 6 HOURS NEEDED FOR ANXIETY Referrals / Follow Up: Cat Vargas MD [Primary Care Provider] - Disposition Disposition (needs filled in before D/C Order can be placed): Home, Self Care
[2022-05-14] MEDS: Bupivacaine 0.25% 30 ML Vial (12:07)
[2022-05-14] MEDS: Ondansetron 4 MG/2 ML Vial IV (14:39)
== END 2022-05-14 15:31 | disposition home or self-care (01) ==
LOC: SDC 07:09 → AC 07:11
PROVIDERS: PCP Family Medicine; Referring Provider Surgery; Visit Provider Surgery
PROC: (CPT 19301; principal; 2022-05-14 09:45)
DX: C50.911 Malignant neoplasm of unspecified site of right female breast (principal); I10 Essential (primary) hypertension; K21.9 Gastro-esophageal reflux disease without esophagitis; G47.30 Sleep apnea, unspecified; Z79.899 Other long term (current) drug therapy; Z87.891 Personal history of nicotine dependence
CPT/HCPCS: 19301; 38525; 38900; 38792; 19285; 00404; 76098; 88305; 88307; 88331; 88341; 88342; A9541; J7120; J2405; J3490; Q9968

== ENCOUNTER → 2022-06-16 | Outpatient (CLI) | payer OTHER, SELFPAY ==
--- NOTE | 2022-06-16 11:04 | BD_ITS ---
STUDY: DUAL ENERGY X-RAY ABSORPTIOMETRY / DXA REASON FOR EXAM: Female, 51 years old. PREHORMONAL RX FOR BREAST CANCER TECHNIQUE: Bone Mineral Density (BMD) measurements of lumbar spine and bilateral hips were obtained. COMPARISON: Comparison is made with prior study of 12/05/2013. FINDINGS: Lumbar Spine (L1-L4): g/cm2 (0.860) / T-score (-1.7) / Z-score (-0.9) Findings are suggestive of osteopenia with a moderate fracture risk. Left Femur Total: g/cm2 (0.886) / T-score (-0.5) / Z-score (0.0) Left Femoral Neck: g/cm2 (0.699) / T-score (-1.4) / Z-score (-0.6) Right Femur Total: g/cm2 (0.881) / T-score (-0.5) / Z-score (0.0) Right Femoral Neck: g/cm2 (0.696) / T-score (-1.4) / Z-score (-0.6) The T-Scores on the most recent prior examination were: Lumbar Spine (L1-L4): There has been worsening of bone density since the previous examination. Left Femur Total: which represents an improvement of 4.3%. Right Femur Total: which represents an improvement of 9.4%. BD/Dexa Bone Density Study IMPRESSION: The patient is considered osteopenic as outlined below according to World Ed Organization (WHO) criteria with a moderate fracture risk. There has been improvement of bone density since the previous examination. Reference Information: The T-score is the number of standard deviations above or below the standard which is normal for young adults at their peak bone mineral density. The World Health Organization (WHO) interprets the T-scores as follows: Above -1 Normal bone density Between -1 and -2.5 Osteopenia Equal to / or below -2.5 Osteoporosis As a practical clinical guideline, osteopenia may be graded as follows: Mild -1 through -1.5 Moderate -1.6 through -2.0 Severe -2.1 through -2.4 The Z-score is the number of standard deviations above or below age-matched controls. A Z-score of less than -1.5 would be considered abnormal. References: 1. NIH Osteoporosis and Related Bone Diseases www osteo.org 2. International Society for Clinical Densitometry www iscd.org 3. National Osteoporosis Foundation www nof.org Electronically Signed: Seth Steel MD at 14:06 EDT ,
[2022-06-16 15:35] LABS: Estradiol 20.5 pg/mL; Luteinizing Hormone 24.4 mIU/mL; Thyroid Stim Hormone (TSH) 3.29 uIU/mL (0.358-3.74)
== END | disposition home or self-care (01) ==
PROVIDERS: Obstetrics & Gynecology; PCP Family Medicine; Referring Provider Internal Medicine Hematology & Oncology; Visit Provider Internal Medicine Hematology & Oncology
DX: C50.911 Malignant neoplasm of unspecified site of right female breast (principal); Z79.811 Long term (current) use of aromatase inhibitors
CPT/HCPCS: 36415; 77080; 82670; 83001; 83002; 84443

== ENCOUNTER → 2022-12-08 | Outpatient (CLI) | payer OTHER, SELFPAY ==
--- NOTE | 2022-12-08 07:24 | US_ITS ---
STUDY: ABDOMINAL ULTRASOUND - ELASTOGRAPHY REASON FOR VISIT: Female, 52 years old. Fatty infiltration of the liver. TECHNIQUE: Liver stiffness measurements were obtained on a OpenWhere RS 85 ultrasound machine using a CA 1-7 probe following the SRU guidelines. 3 measurements were obtained using a 2-D-SWE method. TheIQR/M was 24 % suggesting a quality data set. TECHNICAL QUALITY: Adequate. COMPARISON: Comparison is made with prior study done earlier today. FINDINGS: Liver: Fatty infiltration of the liver. Median liver stiffness measured 7.8 kPa. US/Elastography Parenchyma/Organ IMPRESSION: Liver stiffness measures 7.8 kPa compatible with F2-F3 (Mild to moderate liver fibrosis) Metavir score. Electronically Signed: Seth Steel MD at 9:54 EDT ,
--- NOTE | 2022-12-08 07:24 | US_ITS ---
STUDY: ABDOMINAL ULTRASOUND - RIGHT UPPER QUADRANT REASON FOR VISIT: Female, 52 years old . NAFLD TECHNIQUE: Ultrasound evaluation of the right upper quadrant was performed with real-time and static patel-scale imaging. TECHNICAL QUALITY: Adequate. COMPARISON: Comparison is made with prior study dated April 17, 2018. FINDINGS: Liver: The liver measures 16.4 cm. There is increased echogenicity consistent with fatty infiltration. The bile ducts are within normal limits. There is hepatic color flow. The direction of portal flow is hepatopetal. There is no demonstrated mass lesion. Gallbladder: The patient is status post cholecystectomy. Common Bile Duct (C.B.D.): The common bile duct measures 5 mm. Pancreas: Normal size of the head, body and tail of the pancreas. There is normal echogenicity of the pancreas. There is no demonstrated pancreatic mass or cyst. Right Kidney: Normal size of the right kidney. The right kidney measures 12 cm x 5.6 x 4.4 cm. Normal renal cortex. The right cortex measures 1.6 cm. There is no demonstrated renal mass or cyst. There is no right hydronephrosis. US/Abdomen Limited IMPRESSION: Fatty infiltration of the liver. The patient is status post cholecystectomy. Electronically Signed: Seth Steel MD at 9:45 EDT ,
[2022-12-08 08:15] LABS: Prothrombin Time (Protime)PT. 13.3 SECONDS (11.7-14.9)
[2022-12-08 08:28] LABS: Erythrocyte Sedimentation Rate 17 mm/hr (0-30); Hemoglobin A1c 5.6 % (3.8-5.6)
[2022-12-08 08:30] LABS: Absolute Lymphocyte Count 2.28 X10^3/uL (0.83-4.51); Basophil# 0.05 X10^3/uL; Basophil% 0.8 % (0-1); Eosinophil# 0.14 X10^3/uL; Eosinophils% 2.4 % (0-5); Hematocrit 42.5 % (37-47); Hemoglobin 14.1 g/dL (12.0-15.0); Lymphocyte # 2.28 X10^3/ul (0.83-4.51); Lymphocyte % 38.7 % (19-41); Mean Corp Hgb Conc 33.2 g/dL (32-36); Mean Corpuscular Hgb 31.3 pg (27.0-32.0); Mean Corpuscular Volume 94.2 fL (81-99); Mean Platelet Vol. 11.2 fl (6.2-12.0); Monocyte# 0.46 X10^3/uL; Monocyte% 7.8 % (0-10); NRBC Flagged by Analyzer 0 % (0-5); Neutrophil # 2.95 X10^3/uL (2.7-7.7); Neutrophil % 50.1 % (47-70); Platelet Count 287 K/mm3 (150-450); RBC Distribution Width CV 12.6 % (11.6-14.6); RBC Distribution Width SD 43.8 fl (35.1-43.9); Red Blood Count 4.51 M/mm3 (4.2-5.4); White Blood Count 5.9 K/mm3 (4.4-11.0)
[2022-12-08 08:32] LABS: Ammonia < 10.0 umol/L (11-32)
[2022-12-08 08:49] LABS: HIV - WCH Non-Reactive (Nonreactive); Vitamin B12 834 pg/mL (211-911)
[2022-12-08 09:12] LABS: AST(SGOT) 29 U/L (15-37); Alanine Aminotransfer ALT/SGPT 26 U/L (13-56); Albumin, Serum 3.9 g/dL (3.2-5.0); Alkaline Phosphatase 94 U/L (45-117); Anion Gap 6 (5-15); BUN 16 mg/dL (7-18); BUN/Creat Ratio 19.9 RATIO (10-20); CRP 5.47 mg/L (0.0-3.0); Calcium,Total 9.9 mg/dL (8.5-10.1); Chloride 103 mmol/L (98-107); EST Glomerular Filtration Rate 80 mL/min (>60); Est Glom Filt Rate - Afr Amer 97 mL/min (>60); Ferritin 138 ng/mL (8-252); Globulin 4.1 g/dL (2.2-4.2); Glucose 109 mg/dL (74-106); Iron 88 ug/dL (50-170); LDH 176 U/L (84-246); Magnesium 2.2 mg/dL (1.6-2.6); Potassium 3.4 mmol/L (3.5-5.1); Sodium Level 140 mmol/L (136-145)
[2022-12-09 14:09] LABS: Anti-Centromere B Ab <0.2 AI (0.0-0.9); Anti-Chromatin <0.2 AI (0.0-0.9); Anti-Jo <0.2 AI (0.0-0.9); Anti-Scleroderma-70 AB <0.2 AI (0.0-0.9); RNP Ab <0.2 AI (0.0-0.9); SJOGREN'S Anti-SS-A test < 0.2 AI (0.0-0.9); SJOGREN'S Anti-SS-B test < 0.2 AI (0.0-0.9); Smith Ab <0.2 AI (0.0-0.9)
[2022-12-09 15:15] LABS: Anti-Mitochondrial AB <20.0 Units (0.0-20.0); Anti-dsDNA Ab <1 IU/mL (0-9)
[2022-12-09 21:07] LABS: Angiotensin Convert Enzyme 77 U/L (14-82); Ceruloplasmin 30.2 mg/dL (19.0-39.0); Cytoplasmic Ab (C-ANCA) <1:20 titer (Neg:<1:20); HEPATITIS B SURFACE AG Negative (Negative); Haptoglobin 140 mg/dL (33-346); Hep C Antibodies Non Reactive (Non Reactive); Hepatitis A IgM Antibody Negative (Negative); Hepatitis B Core AB IgM Negative (Negative)
[2022-12-09 21:12] LABS: AFP, Tumor Marker 3.2 ng/mL (0.0-9.2); Anti-Smooth Muscle ABS 26 Units (0-19); Copper, Serum or Plasma 147 ug/dL (80-158); Perinuclear Ab (P-ANCA) <1:20 titer (Neg:<1:20); Zinc, Plasma or Serum 83 ug/dL (44-115)
== END | disposition home or self-care (01) ==
PROVIDERS: PCP Family Medicine; Referring Provider Nurse Practitioner Adult Health; Visit Provider Nurse Practitioner Adult Health
DX: K76.0 Fatty (change of) liver, not elsewhere classified (principal); E66.01 Morbid (severe) obesity due to excess calories; E61.7 Deficiency of multiple nutrient elements; G47.33 Obstructive sleep apnea (adult) (pediatric); I10 Essential (primary) hypertension; K21.9 Gastro-esophageal reflux disease without esophagitis; Z68.39 Body mass index [BMI] 39.0-39.9, adult
CPT/HCPCS: 36415; 76705; 76981; 80053; 80074; 82105; 82140; 82164; 82390; 82525; 82607; 82728; 82746; 83010; 83036; 83516; 83540; 83615; 83735; 84630; 85025; 85610; 85652; 86140; 86225; 86235; 86256; 86703

== ENCOUNTER → 2023-01-17 | Outpatient (CLI) | payer OTHER, SELFPAY ==
--- NOTE | 2023-01-17 15:36 | US_ITS ---
INDICATION: AUB -- Please schedule before 01/19/23. EXAMINATION: Ultrasound US Pelvis Non OB Complete With Transvaginal Imaging TECHNIQUE: Transabdominal and transvaginal pelvic ultrasound was performed. Grayscale, spectral waveform, and color flow Doppler evaluation of the adnexa. COMPARISON: None. FINDINGS: UTERUS: Anteverted. The uterus measures 8.4 x 3.2 x 4.5 cm. No evidence of uterine mass. The endometrial stripe measures 4 mm in AP diameter which is within normal limits. Small anechoic nabothian cysts. Heterogeneous echogenicity along the endocervical canal with echogenic shadowing focus along the external os suggestive of calcification.. RIGHT OVARY: 2.6 x 1.1 x 1.7 cm. Non-enlarged, normal echogenicity. There is normal arterial inflow and venous outflow present in the right ovary. LEFT OVARY: Obscured by bowel gas. FREE FLUID: Anechoic with volume of 517 mm. US/Pelvic w/ Transvaginal IMPRESSION: Nonspecific heterogeneity along the endocervical canal with echogenic possible calcification at the external os. Correlate with exam. Unremarkable uterus and right ovary. Left ovary is obscured by bowel gas. Electronically Signed: Chepe Daley MD at 22:13 EDT ,
== END | disposition home or self-care (01) ==
LOC: US 15:35
PROVIDERS: PCP Family Medicine; Referring Provider Obstetrics & Gynecology; Visit Provider Obstetrics & Gynecology
DX: N93.9 Abnormal uterine and vaginal bleeding, unspecified (principal)
CPT/HCPCS: 76830; 76856

== ENCOUNTER → 2023-04-07 | Outpatient (CLI) | payer OTHER, SELFPAY ==
[2023-04-12 14:19] LABS: HPV APTIMA, High Risk Negative (Negative)
== END | disposition home or self-care (01) ==
LOC: LABSPEC 15:48
PROVIDERS: PCP Family Medicine; Referring Provider Obstetrics & Gynecology; Visit Provider Obstetrics & Gynecology
DX: Z12.4 Encounter for screening for malignant neoplasm of cervix (principal)
CPT/HCPCS: 87624; 88175; G0145

== ENCOUNTER → 2023-04-15 | Outpatient (CLI) | payer OTHER, SELFPAY ==
--- NOTE | 2023-04-15 14:29 | BI_ITS ---
MAMMOGRAPHY - BILATERAL DIAGNOSTIC REASON FOR EXAM: Female, 52 years old. Follow-up for prior right lumpectomy with radiation treatment. PERTINENT HISTORY: Personal history of breast cancer. Grandmother with breast cancer. TECHNIQUE: Digital bilateral breast matthew (3D mammographic acquisition) in the CC and MLO projections. 2-D mediolateral oblique (MLO) and craniocaudad (CC) views of both breasts were obtained. CAD: Full Field Digital Mammography with Computer Added Detection was performed. COMPARISON: Comparison is made with prior mammogram dated April 14, 2022 and May 14, 2022. FINDINGS: Breast Composition: The breasts are heterogeneously dense, which may obscure small masses. There are no dominant masses or suspicious calcifications. Since prior study, the patient underwent lumpectomy in the deep upper medial aspect of the right breast with resultant postoperative scarring. Surgical clips are also seen in the right axilla. No other significant abnormalities are identified. BI/DIAG MAMM W/CAD, BILAT IMPRESSION: Status post right lumpectomy and right axillary node dissection. One year follow-up recommended. (A) ASSESSMENT CATEGORY: BIRADS Category 2: Benign. A letter regarding these results will be sent to the patient by the facility within 30 days. Approximately 10% of breast cancers are not detected by mammography. A normal mammogram should not delay biopsy of a clinically suspicious abnormality. Electronically Signed: Seth Steel MD at 15:35 EDT ,
== END | disposition home or self-care (01) ==
LOC: OPBI 14:16
PROVIDERS: PCP Family Medicine; Referring Provider Student in an Organized Health Care Education/Training Program; Visit Provider Student in an Organized Health Care Education/Training Program
DX: Z85.3 Personal history of malignant neoplasm of breast (principal)
CPT/HCPCS: 77062; 77066; G0279

== ENCOUNTER → 2023-06-10 | Outpatient (CLI) | payer OTHER, SELFPAY ==
--- NOTE | 2023-06-10 14:49 | US_ITS ---
STUDY: ULTRASOUND BREAST - RIGHT REASON FOR EXAM: Female, 52 years old. Right breast pain. TECHNIQUE: Axial and longitudinal images of the RIGHT breast were performed with a high resolution ultrasound transducer. # OF IMAGES: 93 COMPARISON: Comparison is made with prior sonogram of the right breast dated April 14, 2022 and prior mammogram dated April 15, 2023. FINDINGS: RIGHT Breast: There is a 9 mm x 8 mm x 6 mm cyst at the 1:00 position of the breast at 6 cm from the nipple. Incidental note is made of a 2 Eze by 1.2 cm x 0.8 cm left maxillary lymph node. US/Breast Complete Unilateral IMPRESSION: Status post right lumpectomy. 9 mm x 8 mm x 6 mm cyst at the 1:00 position of the breast at 6 cm from the nipple ASSESSMENT CATEGORY: BIRADS Category 2: Benign. A letter regarding these results will be sent to the patient by the facility within 30 days. Electronically Signed: Seth Steel MD at 14:34 EDT ,
--- NOTE | 2023-06-10 16:00 | RAD_ITS ---
STUDY: X-RAY - RIGHT SCAPULA REASON FOR EXAM: Female, 52 years old. right scapular pain TECHNIQUE: 3 view(s) of the scapula were obtained. COMPARISON: None. FINDINGS: Normal scapula, including the osseous glenoid rim, acromion, scapular neck, spine, coracoid process, and visualized body. Normal glenohumeral articulation. Normal acromioclavicular joint. Normal visualized humeral head. Normal visualized pulmonary apex. Surgical clips overlie the right axilla. RAD/Scapula IMPRESSION: Unremarkable plain film x-ray examination of the scapula. Electronically Signed: Abimael Fabian MD ([place]) at 20:55 EDT ,
[2023-06-10 16:36] LABS: Absolute Lymphocyte Count 3.32 X10^3/uL (0.83-4.51); Absolute Neutrophil Count 5.8 X10^3/uL (2.0-7.7); Basophil# 0.08 X10^3/uL; Basophil% 0.8 % (0-1); Eosinophil# 0.12 X10^3/uL; Eosinophils% 1.2 % (0-5); Hematocrit 43.6 % (37-47); Hemoglobin 14.2 g/dL (12.0-15.0); Lymphocyte # 3.32 X10^3/ul (0.83-4.51); Lymphocyte % 32.9 % (19-41); Mean Corp Hgb Conc 32.6 g/dL (32-36); Mean Corpuscular Hgb 30.1 pg (27.0-32.0); Mean Corpuscular Volume 92.6 fL (81-99); Mean Platelet Vol. 10.6 fl (6.2-12.0); Monocyte# 0.76 X10^3/uL; Monocyte% 7.5 % (0-10); NRBC Flagged by Analyzer 0 % (0-5); Neutrophil % 57.4 % (47-70); Platelet Count 327 K/mm3 (150-450); RBC Distribution Width CV 12.8 % (11.6-14.6); RBC Distribution Width SD 43.7 fl (35.1-43.9); Red Blood Count 4.71 M/mm3 (4.2-5.4); White Blood Count 10.1 K/mm3 (4.4-11.0)
[2023-06-10 17:15] LABS: ALB/GLOB Ratio 0.9 RATIO (0.9-2.4); AST(SGOT) 26 U/L (15-37); Alanine Aminotransfer ALT/SGPT 22 U/L (13-56); Albumin, Serum 3.9 g/dL (3.2-5.0); Alkaline Phosphatase 68 U/L (45-117); Anion Gap 4 (5-15); BUN 16 mg/dL (7-18); BUN/Creat Ratio 19.4 RATIO (10-20); Calcium,Total 9.6 mg/dL (8.5-10.1); Chloride 103 mmol/L (98-107); Creatinine, Serum 0.82 mg/dL (0.55-1.02); EST Glomerular Filtration Rate 78 mL/min (>60); Est Glom Filt Rate - Afr Amer 94 mL/min (>60); Globulin 4.3 g/dL (2.2-4.2); Glucose 91 mg/dL (74-106); Potassium 3.2 mmol/L (3.5-5.1); Protein, Total 8.2 g/dL (6.4-8.2); Sodium Level 137 mmol/L (136-145)
[2023-06-11 00:16] LABS: Xtra Tube EP Lab EXTRA TUBE
== END | disposition home or self-care (01) ==
PROVIDERS: PCP Family Medicine; Referring Provider Nurse Practitioner Family; Visit Provider Nurse Practitioner Family
DX: N64.4 Mastodynia (principal); C50.919 Malignant neoplasm of unspecified site of unspecified female breast; Z17.0 Estrogen receptor positive status [ER+]; M89.8X1 Other specified disorders of bone, shoulder
CPT/HCPCS: 36415; 73010; 76641; 80053; 85025

== ENCOUNTER 2024-01-16 09:20 | Emergency (ER) | payer OTHER, SELFPAY ==
[2024-01-16 09:21] VITALS: BP 118/104; PULSE 84; RESP 18; TEMP 35.8; O2SAT 99; BMI 33.6
--- NOTE | 2024-01-16 09:27 | ED.VIS.CHEST ---
HPI History of Present Illness Chief Complaint: Chest Pain [facility] Medical History Acute bacterial conjunctivitis Alcohol use Allergy to animals Anxiety Aromatase inhibitor-associated arthralgia Back pain Breast cancer Breast pain, right Cancer Colitis CPAP (continuous positive airway pressure) dependence Environmental allergies ER+ (estrogen receptor positive status) Fatty liver Gastric reflux History of edema Hx of ulcerative colitis Hypertension Non-smoker Osteopenia Pain of right scapula Segmental and somatic dysfunction of cervical region Segmental and somatic dysfunction of lumbar region Segmental and somatic dysfunction of thoracic region Shortness of breath on exertion Sleep apnea URI, acute Wears glasses Home Medications trazodone 50 mg tablet 50 mg PO QHS 03/20/14 [History Last Taken Unknown] biotin 5 mg tablet 5 mg PO DAILY 04/27/22 [History Last Taken Unknown] cholecalciferol (vitamin D3) 10 mcg (400 unit) capsule 10 mcg PO DAILY 04/27/22 [History Last Taken Unknown] fdsupdak-kiv-ljoy 18 mg-FA 400 mcg-calcium 500 mg-vit K 50 mcg tablet (Women's Multivitamin) 1 tab PO DAILY 04/27/22 [History Last Taken Unknown] cyanocobalamin (vitamin B-12) 500 mcg tablet 500 mcg PO DAILY 09/22/22 [History Last Taken Unknown] anastrozole 1 mg tablet 1 mg PO DAILY #90 tabs 04/07/23 [Rx Last Taken Unknown] alprazolam 0.5 mg tablet (Xanax) 0.5 mg PO BID PRN 11/10/23 [History Last Taken Unknown] calcium carbonate (Calcium 600) 600 mg PO DAILY 11/10/23 [History Last Taken Unknown] clonidine HCl 0.1 mg tablet 0.1 mg PO BID #90 tabs 12/02/23 [Rx Last Taken Unknown] Allergy/AdvReac Type Severity Reaction Status Date / Time oxycodone Allergy Intermediate Nausea/Vom/ Verified 01/16/24 09:20 Diarrhea Environmental Allergies: Allergy Mild PT UNSURE Verified 01/16/24 09:20 Uncoded OF REACTION Family History Son Asthma Father Bowel disease Mother Respiratory disease Grandmother Breast cancer Thyroid disorder Other Colon cancer Diabetes Surgical History History of breast biopsy (~03/2022) History of lumpectomy of right breast (~04/2022) History of sleeve gastrectomy Hx of cholecystectomy Hx of colonoscopy Hx of endoscopic sinus surgery Hx of surgical procedure Hx of tonsillectomy Status post bariatric surgery Status post endometrial ablation Tubal ligation status Social History Smoking Status: Former smoker quit date: 09/06/01 alcohol intake: current Alcohol type: wine caffeine: Yes what type of physical activity do you participate in: walking frequency: 3-4 times per week seatbelt use: always do you feel safe at home: Yes additional social history: -[place] EXAM Physical Exam Const Vital Signs: 01/16/24 09:21 01/16/24 09:30 01/16/24 10:20 Temperature 96.4 F L Temperature Source Temporal Pulse Rate 84 74 Respiratory Rate 18 16 Blood Pressure 118/104 H 119/86 H Blood Pressure Mean 108 97 Pulse Ox 99 95 Oxygen Delivery Method Room Air Room Air Room Air Oxygen Flow Rate (L/min) 01/16/24 11:00 01/16/24 11:56 01/16/24 11:57 Temperature Temperature Source Pulse Rate 68 78 65 Respiratory Rate 18 14 15 Blood Pressure 123/82 H 162/126 H 125/80 H Blood Pressure Mean 95 138 95 Pulse Ox 99 98 98 Oxygen Delivery Method Room Air Nasal Cannula Room Air Oxygen Flow Rate (L/min) 4 01/16/24 13:00 Temperature 98.2 F Temperature Source Pulse Rate 67 Respiratory Rate 16 Blood Pressure 117/88 H Blood Pressure Mean 97 Pulse Ox 97 Oxygen Delivery Method Oxygen Flow Rate (L/min) MDM MDM MDM Narrative Medical decision making narrative: HISTORY OF PRESENT ILLNESS: 53-year-old female presents with epigastric abdominal pain. States approximately one hour prior to arrival. THe patient developed tightness in her chest radiating to her abdomen. Notes this began 30 minutes after eating. Notes some fatigue over the last several weeks. Denies any cough fever chills. Denies any bleeding diathesis. Notes history of cholecystectomy, bariatric surgery. Denies ripping or tearing pain. Denies syncope. Denies any trauma. Denies family or personal history of connective tissue disorders. Denies family history of early or sudden cardiac with age 50. Denies family history of cardiac before the age of 50 Patient denies sudden onset of pain, no tearing sensation, no migratory symptoms, no new numbness, weakness or loss of sensation. Patient denies family history or personal history of Marfan syndrome or Justine-Danlos. The patient denies recent surgery in the last 4 weeks or immobilization in the last 3 days, denies previous diagnosis of DVT or PE, hemoptysis, unilateral leg swelling or malignancy with treatment the last 6 months. No estrogen use noted. REVIEW OF SYSTEMS: All other systems reviewed and are negative except as noted in the history of present illness. At least 10 review of systems reviewed and are negative except as noted in history of present illness. PHYSICAL EXAM: Nursing triage notes reviewed, Vital signs reviewed Constitutional: please see mdm HENT: MMM Eyes: Pupils equal round and reactive to light, Extraocular muscles intact Neck: No stridor, no JVD, full neck ROM Lungs: Clear to auscultation, No wheezing or rales. No increased work of breathing, no conversational dyspnea, no accessory muscle use, no nasal flaring. No respiratory distress noted Heart: Regular rate and rhythm, No murmurs, No rubs and No gallops, 2+ distal pulses (radial, femoral, posterior tibial) in all extremities Abdomen: Soft, there is no tenderness, rigidity, rebound or guarding, no obvious peritoneal signs, no palpable pulsatile abdominal masses, no auscultated abdominal bruit : No CVAT Extremities: No edema Neuro: No focal neurological deficits, cranial nerves II through XII intact, 5/5 strength in all extremities. Intact sensation to light touch in all extremities, 2+ reflexes bilateral patella tendons. Normal gait. No ataxia. Skin: No rash or lesions noted MEDICAL DECISION MAKING: Chief Complaint: Chest pain External records reviewed: Imaging reviewed: No recent cardiac catheterizations, stress test or echocardiograms noted in the chart Factors affecting care: Breast cancer, gastric sleeve Social determinants of health: Denies cocaine or methamphetamine use History obtained from others: the patient's . Consults: none [facility] Narrative: Patient was hemodynamically stable, afebrile, nontoxic-appearing. Exam without focal cardiopulmonary abnormalities. PE less likely given low risk Wells score. Aortic dissection is thought to be less likely given no sudden ripping or tearing pain, migratory pain, palpable pulse inequalities, no focal neurologic deficits concurrent with chest pain. Chance of dissection less than 09/1999. Pericarditis less likely given no pathognomonic EKG changes (no diffuse ST elevations, MA depressions). GI etiology (i.e. Boerhaave syndrome) less likely given no chest or neck crepitus, no vomiting or forced retching. I considered the following differential diagnosis: ACS, arrhythmia, anemia, electrolyte abnormality, pneumonia, pneumothorax, GI etiology, PE, pancreatitis, hepatobiliary obstruction, abdominal perforation or obstruction. ALL IMAGES (IF OBTAINED) HAVE BEEN PERSONALLY REVIEWED AND INTERPRETED BY MYSELF. EKG with normal sinus rhythm, normal axis, normal intervals, no obvious STEMI, noted nonspecific T wave inversion in 3 which is new from prior EKG from May 2018. I have personally reviewed the patient's chest x-ray. Chest x-ray is unremarkable for pulmonary edema, pneumothorax, pneumonia or focal cardiopulmonary abnormality. High-sensitivity troponin is negative, no evidence of myocardial ischemia Lipase slightly elevated this is not consistent with acute pancreatitis however CBC without leukocytosis, severe anemia, no thrombocytopenia. LFTs show no evidence of hepatobiliary pathology. CT scan of the abdomen pelvis shows no evidence of intra-abdominal perforation or obstruction The Synthesis of the patients history, physical exam, labs and images suggest NO acute life-threatening etiology. Unclear etiology likely GI in origin. Repeat abdominal exam was benign. Instructed to take PPIs and follow-up with GI and/or her operating physician. The patient and/or family, caregivers express understanding. The patient and/or family, caregivers agrees with the plan. Total critical care time today provided was at least 0 minutes. This excludes separately billable procedures. Critical care time (if documented) is secondary to the patient having high probability of clinically significant/life threatening deterioration in the patient's condition which required my urgent intervention. Impression: 1. Elevated lipase 2. Epigastric abdominal pain Disposition: Discharge home Sunil Xiong DO Lab Data Labs: Laboratory Results - last 24 hr 01/16/24 01/16/24 09:45 11:46 WBC 6.8 RBC 4.85 Hgb 14.6 Hct 44.4 MCV 91.5 MCH 30.1 MCHC 32.9 RDW Std Deviation 42.5 RDW Coeff of Aydin 12.5 Plt Count 341 MPV 10.2 Immature Gran % (Auto) 0.100 Neut % (Auto) 40.0 L Lymph % (Auto) 37.0 [place] % (Auto) 5.7 Eos % (Auto) 15.7 H Baso % (Auto) 1.5 H Absolute Neuts (auto) 2.7 Absolute Lymphs (auto) 2.53 Nucleated RBC % 0 Sodium 139 Potassium 3.6 Chloride 102 Carbon Dioxide 27.0 Anion Gap 10 BUN 17 Creatinine 0.76 Estim Creat Clear Calc 94.94 Est GFR (MDRD) Af Amer 102 Est GFR (MDRD) Non-Af 84 BUN/Creatinine Ratio 22.3 H Glucose 116 H Calcium 9.7 Total Bilirubin 0.50 Direct Bilirubin 0.17 AST 53 H ALT 26 Alkaline Phosphatase 87 Troponin I High Sens 4 4 Total Protein 8.1 Albumin 3.6 Globulin 4.5 H Lipase 238 H Radiography Diagnostic Testing: Clinical Impression(s) from Imaging Studies Abdomen/Pelvis CT 01/16/24 09:39 IMPRESSION: Fatty infiltration of the liver. Status post cholecystectomy. Prior sleeve gastrectomy for weight loss surgery. Mild degree of bilateral hydronephrosis and proximal right hydroureter although no ureteral obstruction is seen. Mild degree of fluid-filled proximal small bowel loops although the small bowel is not distended. Electronically Signed: Seth Steel MD at 11:24 EDT , Chest X-Ray 01/16/24 09:52 IMPRESSION: No acute abnormality is seen. Electronically Signed: Seth Steel MD at 10:43 EDT , Discharge Plan Triage Chief Complaint: Chest Pain ED Provider: Sunil Xiong Dx/Rx/DC Orders Instructions: Abdominal Pain, ED Chest Pain, Uncertain Cause Prescriptions: No Action cholecalciferol (vitamin D3) 10 mcg (400 unit) capsule 10 mcg PO DAILY biotin 5 mg tablet 5 mg PO DAILY Women's Multivitamin 18 mg-400 mcg- 500 mg-50 mcg tablet 1 tab PO DAILY alprazolam [Xanax] 0.5 mg tablet 0.5 mg PO BID PRN cyanocobalamin (vitamin B-12) 500 mcg tablet 500 mcg PO DAILY anastrozole 1 mg tablet 1 mg PO DAILY Qty: 90 3RF clonidine HCl 0.1 mg tablet 0.1 mg PO BID Qty: 90 6RF calcium carbonate [Calcium 600] 600 mg calcium (1,500 mg) tablet 600 mg PO DAILY trazodone 50 MG tablet 50 mg PO QHS Primary Care Provider: Cat Vargas Referrals: Cat Vargas MD [Primary Care Provider] - Activity Restrictions/Additional Instructions: Thank you for trusting us with your care today! Please take Tylenol (2 pills, 650 mg), ibuprofen (2 pills, 400 mg) every 6 hours as needed for pain and fever control. Please begin taking omeprazole (Prilosec). Please return to the emergency department if your symptoms change or worsen. Please follow with your primary care physician for further outpatient evaluation and management. Disposition Disposition: Home, Self Care Discharge Date/Time: 01/16/24 13:06
--- NOTE | 2024-01-16 09:30 | EKG12_ITS ---
Test Reason : CP Blood Pressure : / mmHG Vent. Rate : 094 BPM Atrial Rate : 094 BPM P-R Int : 162 ms QRS Dur : 090 ms QT Int : 356 ms P-R-T Axes : 038 082 -02 degrees QTc Int : 445 ms Normal sinus rhythm Nonspecific T wave abnormality Abnormal ECG Confirmed by CHULA VALENTIN, RICK ([id number]), purchase request editor RAMONA BERG ([id number]) on 01/19/2024 11:35:32 AM Referred By: RU/TA Confirmed By:RICK QUIROS MD
--- NOTE | 2024-01-16 09:39 | CT_ITS ---
STUDY: CT ABDOMEN AND PELVIS WITH CONTRAST REASON FOR EXAM: Female, 53 years old. Midsternal/epigastric tightness. Nausea. History of breast carcinoma. History of prior sleeve gastrectomy. RADIATION DOSAGE (If Supplied By Facility): CTDIvol = ( 13.15 ) mGy, DLP = ( 958.46 ) mGycm TECHNIQUE: Transaxial images were obtained from the dome of the diaphragm to the symphysis pubis without oral contrast. IV 100mL Isovue-300 was administered. Sagittal and coronal images were reconstructed. Individualized dose optimization techniques were used for this CT. COMPARISON: None. FINDINGS: The visualized lung bases are unremarkable. The visualized portions of the heart are within normal limits. There is decreased attenuation of the liver consistent with steatosis. There are surgical clips in the gallbladder fossa consistent with a prior cholecystectomy. Normal spleen. Normal pancreas. Normal bilateral adrenal glands. Mild degree of bilateral hydronephrosis. Minimally dilated proximal right hydroureter. No urological obstruction is seen. There is evidence of prior sleeve gastrectomy for weight loss. Normal small intestine. Normal colon. The appendix is visualized and appears normal. Multiple lymph nodes are seen within the root of the mesenteric fat. This is nonspecific. Mild degree of fluid-filled proximal small bowel loops although the small bowel was not dilated. Fecal material is seen throughout the colon. Normal abdominal aorta. Normal inferior vena cava. Normal retroperitoneum. Normal urinary bladder. There is evidence of prior ESSURE placement. Normal abdominal wall. Normal osseous structures. CT/Abdomen/Pelvis W IV Cont ONLY IMPRESSION: Fatty infiltration of the liver. Status post cholecystectomy. Prior sleeve gastrectomy for weight loss surgery. Mild degree of bilateral hydronephrosis and proximal right hydroureter although no ureteral obstruction is seen. Mild degree of fluid-filled proximal small bowel loops although the small bowel is not distended. Electronically Signed: Seth Steel MD at 11:24 EDT ,
--- NOTE | 2024-01-16 09:52 | RAD_ITS ---
STUDY: X-RAY CHEST REASON FOR EXAM: Female, 53 years old. Chest pain TECHNIQUE: Single AP portable view of the chest. COMPARISON: Comparison is made with prior study dated June 10, 2018. FINDINGS: Surgical clips are seen overlying the right axilla and the right chest. The lungs are clear and expanded. There is no demonstrated pleural abnormality. Normal size heart. Normal mediastinum and isabella. Normal visualized pulmonary arteries. Normal visualized aortic arch and descending thoracic aorta. Normal visualized thoracic spine. Normal visualized ribs, clavicles, and shoulders. There is no demonstrated abnormality of the visualized soft tissue structures of the upper abdomen. RAD/Chest 1 View (Portable) IMPRESSION: No acute abnormality is seen. Electronically Signed: Seth Steel MD at 10:43 EDT ,
[2024-01-16] MEDS: Aspirin 81 MG TAB.CHEW 324 MG PO (09:54)
[2024-01-16] MEDS: Ondansetron 4 MG/2 ML Vial IV (09:55)
[2024-01-16 10:05] LABS: Absolute Lymphocyte Count 2.53 X10^3/uL (0.83-4.51); Absolute Neutrophil Count 2.7 X10^3/uL (2.0-7.7); Basophil% 1.5 % (0-1); Eosinophil# 1.07 X10^3/uL; Eosinophils% 15.7 % (0-5); Hematocrit 44.4 % (37-47); Hemoglobin 14.6 g/dL (12.0-15.0); Lymphocyte # 2.53 X10^3/ul (0.83-4.51); Mean Corp Hgb Conc 32.9 g/dL (32-36); Mean Corpuscular Hgb 30.1 pg (27.0-32.0); Mean Corpuscular Volume 91.5 fL (81-99); Mean Platelet Vol. 10.2 fl (6.2-12.0); Monocyte# 0.39 X10^3/uL; Monocyte% 5.7 % (0-10); NRBC Flagged by Analyzer 0 % (0-5); Neutrophil # 2.73 X10^3/uL (2.7-7.7); Platelet Count 341 K/mm3 (150-450); RBC Distribution Width CV 12.5 % (11.6-14.6); RBC Distribution Width SD 42.5 fl (35.1-43.9); Red Blood Count 4.85 M/mm3 (4.2-5.4); White Blood Count 6.8 K/mm3 (4.4-11.0)
[2024-01-16 10:20] VITALS: BP 119/86; PULSE 74; RESP 16; O2SAT 95
[2024-01-16] MEDS: Famotidine 200 MG/20 ML MDV 20 MG in 0.9% Normal Saline (Pres. free 8 ML 300 MG IV (10:24)
[2024-01-16 10:26] LABS: AST(SGOT) 53 U/L (15-37); Alanine Aminotransfer ALT/SGPT 26 U/L (13-56); Albumin, Serum 3.6 g/dL (3.2-5.0); Alkaline Phosphatase 87 U/L (45-117); Anion Gap 10 (5-15); BUN 17 mg/dL (7-18); BUN/Creat Ratio 22.3 RATIO (10-20); Bilirubin, Direct 0.17 mg/dL (0.00-0.30); Calcium,Total 9.7 mg/dL (8.5-10.1); Chloride 102 mmol/L (98-107); Creatinine, Serum 0.76 mg/dL (0.55-1.02); EST Glomerular Filtration Rate 84 mL/min (>60); Est Glom Filt Rate - Afr Amer 102 mL/min (>60); Estimated Creatinine Clearance 94.94 ml/min; Globulin 4.5 g/dL (2.2-4.2); Glucose 116 mg/dL (74-106); Lipase 238 U/L (13-75); Potassium 3.6 mmol/L (3.5-5.1); Protein, Total 8.1 g/dL (6.4-8.2); Sodium Level 139 mmol/L (136-145); Troponin-I HS (w/2H Reflex) 4 pg/mL (3.0-54.0)
[2024-01-16 11:00] VITALS: BP 123/82; PULSE 68; RESP 18; O2SAT 99
[2024-01-16 11:56] VITALS: BP 162/126; PULSE 78; RESP 14; O2SAT 98
[2024-01-16 11:57] VITALS: BP 125/80; PULSE 65; RESP 15; O2SAT 98
[2024-01-16 11:58] LABS: Reflex Troponin-HS? (from REC) Y
[2024-01-16 12:36] LABS: Troponin-I HS 4 pg/mL (3.0-54.0)
[2024-01-16 13:00] VITALS: BP 117/88; PULSE 67; RESP 16; TEMP 36.8; O2SAT 97
== END 2024-01-16 13:06 | disposition home or self-care (01) ==
PROVIDERS: Emergency Provider Emergency Medicine; PCP Family Medicine; Visit Provider Emergency Medicine
DX: R74.8 Abnormal levels of other serum enzymes (principal); R10.13 Epigastric pain; Z98.84 Bariatric surgery status; Z90.49 Acquired absence of other specified parts of digestive tract; Z79.899 Other long term (current) drug therapy; Z87.891 Personal history of nicotine dependence; Z85.3 Personal history of malignant neoplasm of breast
CPT/HCPCS: 71045; 74177; 80048; 80076; 83690; 84484; 85025; 93005; 96361; 96374; 99284; Q9967; A4216; J2405; J3490

== ENCOUNTER → 2024-04-17 | Outpatient (CLI) | payer OTHER, SELFPAY ==
--- NOTE | 2024-04-17 14:11 | BI_ITS ---
MAMMOGRAPHY - BILATERAL SCREENING REASON FOR EXAM: Female, 53 years old. Routine annual screening examination. PERTINENT HISTORY: Personal history of breast cancer. Prior right lumpectomy with radiation treatment. Grandmother with breast cancer. TECHNIQUE: Digital bilateral breast eugenio (3D mammographic acquisition) in the CC and MLO projections. 2-D mediolateral oblique (MLO) and craniocaudad (CC) views of both breasts were obtained. CAD: Full Field Digital Mammography with Computer Added Detection was performed. COMPARISON: Comparison is made with prior study dated April 15, 2023 and May 14, 2022. FINDINGS: Breast Composition: The breasts are heterogeneously dense, which may obscure small masses. There are no dominant masses or suspicious calcifications. Once again, the patient is status post lumpectomy in the deep upper slightly medial aspect of the right breast with resultant postoperative scarring. Surgical clips are seen in the right axilla. No other significant abnormalities are identified. There has been no significant change since the prior study. BI/SCRN MAMM (CAD)W/EUGENIO BILAT IMPRESSION: Stable bilateral screening mammogram. Yearly follow-up mammogram recommended. (A) ASSESSMENT CATEGORY: BIRADS Category 2: Benign. A letter regarding these results will be sent to the patient by the facility within 30 days. Approximately 10% of breast cancers are not detected by mammography. A normal mammogram should not delay biopsy of a clinically suspicious abnormality. [id number] Electronically Signed: Seth Steel MD at 7:59 EDT ,
== END | disposition home or self-care (01) ==
LOC: OPBI 14:11
PROVIDERS: PCP Family Medicine; Referring Provider Student in an Organized Health Care Education/Training Program; Visit Provider Student in an Organized Health Care Education/Training Program
DX: Z12.31 Encounter for screening mammogram for malignant neoplasm of breast (principal); Z85.3 Personal history of malignant neoplasm of breast
CPT/HCPCS: 77063; 77067

== ENCOUNTER → 2024-11-26 | Outpatient (CLI) | payer OTHER, SELFPAY ==
[2024-11-26 07:51] LABS: Absolute Lymphocyte Count 2.91 X10^3/uL (0.83-4.51); Basophil# 0.04 X10^3/uL; Basophil% 0.6 % (0-1); Eosinophil# 0.13 X10^3/uL; Hematocrit 41.5 % (37-47); Hemoglobin 13.6 g/dL (12.0-15.0); Lymphocyte # 2.91 X10^3/ul (0.83-4.51); Lymphocyte % 44.8 % (19-41); Mean Corp Hgb Conc 32.8 g/dL (32-36); Mean Corpuscular Hgb 30.2 pg (27.0-32.0); Mean Corpuscular Volume 92.2 fL (81-99); Mean Platelet Vol. 10.6 fl (6.2-12.0); Monocyte# 0.46 X10^3/uL; Monocyte% 7.1 % (0-10); NRBC Flagged by Analyzer 0 % (0-5); Neutrophil # 2.95 X10^3/uL (2.7-7.7); Neutrophil % 45.3 % (47-70); Platelet Count 306 K/mm3 (150-450); RBC Distribution Width CV 12.8 % (11.6-14.6); RBC Distribution Width SD 43.3 fl (35.1-43.9); White Blood Count 6.5 K/mm3 (4.4-11.0)
[2024-11-26 08:59] LABS: ALB/GLOB Ratio 1.3 RATIO (0.9-2.4); AST(SGOT) 25 U/L (<=31); Alanine Aminotransfer ALT/SGPT 12 U/L (<=34); Albumin, Serum 4.2 g/dL (3.5-5.0); Alkaline Phosphatase 93 U/L (35-104); Anion Gap 13 (5-15); BUN 16 mg/dL (4-19); BUN/Creat Ratio 23.1 RATIO (10-20); Calcium,Total 9.9 mg/dL (7.6-11.0); Carbon Dioxide 26.8 mmol/L (21.0-32.0); Chloride 100 mmol/L (98-108); EST Glomerular Filtration Rate 103 (>60); Globulin 3.3 g/dL (2.2-4.2); Glucose 100 mg/dL (70-99); Potassium 3.5 mmol/L (3.3-5.1); Protein, Total 7.5 g/dL (5.9-8.4); Sodium Level 140 mmol/L (133-145); Total Bilirubin 0.36 mg/dL (0.00-1.30)
[2024-11-27 04:07] LABS: Insulin Level 17.7 uIU/mL (2.6-24.9)
== END | disposition home or self-care (01) ==
LOC: LAB 06:15
PROVIDERS: PCP Family Medicine
DX: E66.3 Overweight (principal)
CPT/HCPCS: 36415; 80053; 83525; 85025

== ENCOUNTER → 2025-02-14 | Outpatient (CLI) | payer OTHER, SELFPAY ==
--- NOTE | 2025-02-14 10:57 | VDLE_ITS ---
Reason For Study Reason For Study: Pain RIGHT LEFT CFV is compressible, spontaneous, phasic, competent GSV is normal. and demonstrates normal augmentation. CFV is compressible, spontaneous, phasic, competent, Procedure and demonstrates normal augmentation. This is a venous duplex using B-mode, color flow and FV is compressible, spontaneous, phasic, competent spectral Doppler. and demonstrates normal augmentation. Exam performed in department. POP V is compressible, spontaneous, phasic, competent and demonstrates normal augmentation. T/P Trunk is compressible. PTV is compressible. LT PerV is compressible. VL/Venous Duplex US, Unilateral Interpretation Summary Deep veins of the left lower extremity are patent and compressible segmentally. There is no evidence of left lower extremity deep vein thrombosis. Valvular competence appears intact within the p roximal deep venous system on the left . The left great saphenous vein appears patent and compressible segmentally. The right common femoral vein is patent and compressible . Ordering Physician: Shaista Gray Referring Physician: Cat Vargas MD Performed By: Vannesa Navas RVT
== END | disposition home or self-care (01) ==
PROVIDERS: PCP Family Medicine; Referring Provider Nurse Practitioner Family; Visit Provider Nurse Practitioner Family
DX: M79.662 Pain in left lower leg (principal); Z91.89 Other specified personal risk factors, not elsewhere classified
CPT/HCPCS: 93971

== ENCOUNTER → 2025-04-18 | Outpatient (CLI) | payer OTHER, SELFPAY | END | disposition home or self-care (01) | LOC: OPBD 14:02 | PROVIDERS: PCP Family Medicine; Referring Provider Nurse Practitioner Family; Visit Provider Nurse Practitioner Family | DX: Z12.31 Encounter for screening mammogram for malignant neoplasm of breast (principal); Z13.820 Encounter for screening for osteoporosis; Z78.0 Asymptomatic menopausal state; M81.0 Age-related osteoporosis without current pathological fracture | CPT/HCPCS: 77063; 77067; 77080 ==